=== PATIENT | male | born 1965 | race Caucasian/White ===

== ENCOUNTER → 2018-01-17 11:39 | Outpatient (CLI) | payer OTHER, SELFPAY ==
--- NOTE | 2018-01-17 | DI.MRI.S_ITS ---
PROCEDURE: MR LUMBAR SPINE WO CON INDICATIONS: LOW BACK PAIN RADIATING DOWN LEG TECHNIQUE: Noncontrast sagittal T1 spin echo and T2 fast echo, sagittal STIR, axial T1 and T2 fast spin echo through the lumbar spine. In cases with scoliosis, additional coronal T2 fast spin echo may be performed. COMPARISON: [facility] [place], CR, XR LUMBAR SPINE WITH OLBIQUES PLUS FLEXION EXTENSION, 01/02/2018, 10:41. FINDINGS: Image quality: Excellent. Alignment and Curvature: Grade 2 anterolisthesis of L5 on S1. There is trace retrolisthesis of L4 on L5. Bone Marrow: Degenerative endplate signal abnormalities are present most prominently at L5-S1. Bilateral chronic L5 pars defects. No acute vertebral body compression fractures. Spinal Cord: Conus medullaris terminates at the L1-L2 level. Visualized cord demonstrates normal signal and size. Paraspinous Soft Tissues: No paravertebral masses. Bilateral presumed renal cysts although technically indeterminate L1-L2: Normal appearance. L2-L3: Normal appearance. L3-L4: Broad-based posterior disc bulge and bilateral facet arthropathy. Mild canal narrowing. Minimal partial effacement of the lateral recesses although this appears symmetric. Mild right foraminal narrowing. No definite left foraminal stenosis. L4-L5: Central disc protrusion and bilateral facet arthropathy. There is no definite canal stenosis. Partial effacement of the lateral recesses although this appears symmetric. Severe left and moderate to severe right foraminal narrowing L5-S1: There is epidural lipomatosis. Mild central canal narrowing. Symmetric appearing partial effacement of the lateral recesses. Severe bilateral foraminal stenoses. IMPRESSION: Chronic L5 pars defects with grade 2 anterolisthesis of L5 on S1. Severe bilateral L5-S1 foraminal stenoses. Severe left and moderate to severe right L4-L5 foraminal stenoses. Bilateral subarticular narrowing at L4-L5 and L5-S1 however appears symmetric Dictated by: Aron Peres M.D. on 01/17/2018 at 12:55 Approved by: Aron Peres M.D. on 01/17/2018 at 13:05
== END ==
PROVIDERS: Visit Provider Physical Medicine & Rehabilitation Pain Medicine
DX: M43.17 Spondylolisthesis, lumbosacral region (principal); M48.061 Spinal stenosis, lumbar region without neurogenic claudication; M48.07 Spinal stenosis, lumbosacral region; M54.16 Radiculopathy, lumbar region
CPT/HCPCS: 72148

== ENCOUNTER 2020-01-15 11:45 | Observation (INO) | payer OTHER, SELFPAY ==
[2020-01-15] VITALS (11 sets, daily range): BP systolic 131–178; BP diastolic 84–95; PULSE 66–90; RESP 15–21; TEMP 35.7–36.8; O2SAT 93–97; BMI 34.8
--- NOTE | 2020-01-15 12:04 | DI.RAD.S_ITS ---
PROCEDURE: XR CHEST 1V INDICATIONS: chest pain TECHNIQUE: One view of the chest was acquired. COMPARISON: None. FINDINGS: Surgical changes and devices: Prior spine surgery. Lungs and pleura: Lungs are clear. No pleural effusions or pneumothorax. Mediastinum: Mediastinal contours appear normal. Heart size is normal. Bones and chest wall: No suspicious bony lesions. Overlying soft tissues appear unremarkable. IMPRESSION: A definite source of chest pain is not found. Dictated by: Bruce Baird M.D. on 01/15/2020 at 12:19 Approved by: Bruce Baird M.D. on 01/15/2020 at 12:19
[2020-01-15 12:10] LABS: Add Manual Diff / Slide Review NO; Basophils Absolute Auto 200 /uL (0-100); Basophils Percent Auto 2.2 % (0-2); Eosinophils Absolute Auto 400 /uL (0-450); Eosinophils Percent Auto 3.6 % (2-4); Hematocrit 46.3 % (41-53); Hemoglobin 16.2 g/dL (13.5-17.5); Lymphocytes Absolute Auto 2500 /uL (1100-4500); Lymphocytes Percent Auto 25.3 % (25-40); Mean Corpuscular Hemoglobin 31.2 PG (26-34); Mean Corpuscular Volume 89.1 fL (80-100); Monocytes Absolute Auto 500 /uL (0-900); Monocytes Percent Auto 5.5 % (3-14); Neutrophils Absolute Auto 6300 /uL (1500-7000); Neutrophils Percent Auto 63.4 % (50-75); Platelet Count 235 X10^3/uL (150-400); Red Blood Cell Count 5.19 X10^6/uL (4.5-5.9); Red Cell Distribution Width 13.4 % (11.6-14.8); White Blood Cell Count 9.9 X10^3/uL (4.5-11.0)
[2020-01-15 12:14] LABS: Prothrombin Time 11.1 SECONDS (10.1-12.7)
[2020-01-15 12:17] LABS: PTT Partial Thromboplastin Tim 32 SECONDS (26.4-36.2)
[2020-01-15 12:19] LABS: Alanine Aminotransferase 29 IU/L (<50); Albumin 4.1 g/dL (3.5-5.0); Albumin Globulin Ratio 1.4 (1.0-2.8); Alkaline Phosphatase 125 U/L (38-126); Aspartate Aminotransferase 26 IU/L (17-59); BUN Creatinine Ratio 14.3 (6-22); Bilirubin Total 0.6 mg/dL (0.2-1.3); Blood Urea Nitrogen 8 mg/dL (9-20); Calcium 9.1 mg/dL (8.4-10.2); Carbon Dioxide 26 mmol/L (22-32); Chloride 103 mmol/L (98-107); Creatine Kinase 116 U/L (55-170); Estimated Glomerular Filt Rate > 60.0 mL/min (>60); Glucose 195 mg/dL (70-100); HEMOLYSIS 22 (0-50); Lipase 215 U/L (23-300); Potassium 4.1 mmol/L (3.4-5.1); Sodium 133 mmol/L (137-145); Total Protein 7.1 g/dL (6.3-8.2)
--- NOTE | 2020-01-15 12:25 | ED_ITS ---
HPI - Chest Pain <LATONYA Haney - Last Filed: 01/15/20 18:09> General Chief Complaint: Chest Pain Stated Complaint: CHEST PAIN Time Seen by Provider: 01/15/20 12:05 Source: patient Mode of arrival: Ambulatory History of Present Illness HPI narrative: 54yo male current smoker with a history of HTN, HLD, presents emergency department for substernal intermittent chest pain for the past 3 months. Patient states a occurred anywhere from 0 to 3 times a day. He notices it often in the middle night, in the morning after drinking coffee, or when he standing around camper after hunting. He has been taking Tums which usually improves the pain. Pain lasts anywhere from 1-4 hours. He describes it as a dull aching/tightness 07/31. Patient states he started taking pantoprazole approximately 1 month ago but does not take it daily, only takes it when he feels like he has heartburn. He states that this has not worked very well. Patient denies any personal cardiac history. 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 Patient denies any other symptoms such as shortness of breath, wheezing, dizziness, nausea, vomiting, diarrhea, fevers, rhinitis, sore throat, or worsening cough. He states he has a chronic cough from smoking. Patient denies chest pain at this time. Related Data Home Medications Medication Instructions Recorded Confirmed telmisartan [Micardis] 40 mg PO QDAY #0 01/26/16 01/15/20 albuterol sulfate [Ventolin HFA] 1 puff INH PRN PRN #0 03/17/16 01/15/20 Previous Rx's Medication Instructions Recorded oxycodone 5 - 10 mg PO Q3HP PRN #40 03/31/16 Allergies Allergy/AdvReac Type Severity Reaction Status Date / Time No Known Allergies Allergy Verified 01/15/20 12:26 Review of Systems <LATONYA Haney - Last Filed: 01/15/20 18:09> Review of Systems Narrative: REVIEW OF SYSTEMS: GENERAL: Denies fever or chills. HENT: No head trauma. CARDIOVASCULAR: Reports chest pain, see HPI. RESPIRATORY: No shortness of breath. GASTROINTESTINAL: No nausea, vomiting, diarrhea, or constipation. MUSCULOSKELETAL: No injury. INTEGUMENTARY: No rash. NEURO: No numbness or tingling. PSYCH: No behavior or mood changes. Patient History <LATONYA Haney - Last Filed: 01/15/20 18:09> Medical History HTN (hypertension) Surgical History (Updated 01/15/20 @ 18:25 by Felisa Finley MD) H/O cervical spine surgery Family History (Updated 01/15/20 @ 18:23 by Felisa Finley MD) Grandfather Myocardial infarction Cardiac disease Brother Myocardial infarction Social History household members: significant other Smoking Status: Current every day smoker Smoking Status: Current every day smoker Substance Use Type: marijuana Exam <LATONYA Haney - Last Filed: 01/15/20 18:09> Initial Vital Signs Initial Vital Signs: Vital Signs Temperature 98.3 F 01/15/20 11:45 Pulse Rate 80 01/15/20 11:45 Respiratory Rate 16 01/15/20 11:45 Blood Pressure 178/95 H 01/15/20 11:45 Pulse Oximetry 97 01/15/20 11:45 PHYSICAL EXAMINATION: GENERAL: Well groomed, alert, and cooperative. Answers questions promptly and appropriately. Vital signs noted. HENT: Normocephalic, atraumatic. EYES: Conjunctiva pink, sclera white, no periorbital swelling. CHEST: Normal to inspection and without deformities. CARDIOVASCULAR: S1 and S2 sounds normal. Regular rate and rhythm, no murmurs, clicks, or bruits. No pedal edema. RESPIRATORY: Normal respiratory rate, trachea midline, airway patent. No stridor, nasal flaring or accessory muscle use. Lungs are clear in all jones without wheeze, rhonchi, or crackles. Occasional dry cough heard throughout examination. GASTROINTESTINAL: Bowel sounds normoactive. Abdomen is soft and non-tender. No organomegaly. MUSCULOSKELETAL: Normal gait and coordination. Equal tone and mass bilaterally. EXTREMITIES: CMS intact. Moves all extremities. SKIN: Warm, dry, soft, appropriate color for ethnicity. No lesions, rashes, or wounds. NEURO: Alert and Oriented X 3. Good coordination. No ataxia, or sensory deficits, or cognitive issues. PSYCH: Appropriate affect and mood. <Adelfo Herzog DO - Last Filed: 01/15/20 18:36> Initial Vital Signs Initial Vital Signs: Vital Signs Temperature 98.3 F 01/15/20 11:45 Pulse Rate 80 01/15/20 11:45 Respiratory Rate 16 01/15/20 11:45 Blood Pressure 178/95 H 01/15/20 11:45 Pulse Oximetry 97 01/15/20 11:45 Scores <LATONYA Haney - Last Filed: 01/15/20 18:09> HEART Score Heart Score history: Moderately Suspicious Heart Score EKG: Normal Heart Score Age: 45-64 years old Heart Score risk factors: > 3 risk factors or hx of atherosclerotic disease Heart Score troponin: < or = to normal limit Heart Score Total: 4 Course <LATONYA Haney - Last Filed: 01/15/20 18:09> Course Course Narrative: 1300: I spoke with Dr. Finley, discussed that patient's heart score is 4, discussed family history and risk factors as well as laboratory work and imaging results. She accepts for admission. 1306: Patient updated on plan of care, consents to admission. Declines need for nicotine patch at this time. 1340: Patient verbalized request to leave, however, discussed with patient multiple times and in depth that cardiac issues can present themselves when the heart is active and we discussed the need for stress test and that he is moderate risk. Discussed that if he wanted to be discharged, he should sign an Against Medical Advice form. Patient states, I will stay. Orders Ordered: ED Orders 01/15/20 11:58 EKG-12 Lead Stat 01/15/20 12:00 Complete Blood Count AUTO DIFF Stat Comprehensive Metabolic Panel Stat Lipase Stat Partial Thromboplastin Time Stat Prothrombin Time INR Stat Troponin & CK Cardiac Panel Stat 01/15/20 12:04 XR chest 1V Stat Acetaminophen (Acetaminophen 325 Mg Tablet) 650 mg PO Q6HR PRN PRN Reason: Fever/Mild Pain (1-3) Al Hydrox/Mg Hydrox/Simethicone (Mag Hydrox/Alum/Simeth 30 Ml Udc) 30 ml PO Q6HR PRN PRN Reason: Dyspepsia Albuterol (Albuterol Hfa 200 Puff/18 Gm Inh (Covid Pos/Vent Pts)) 2 puff INH RTQ4HR PRN PRN Reason: Shortness Of Breath Aspirin (Aspirin Ec 81 Mg Tablet) 81 mg PO DAILY [facility] Enoxaparin Sodium (Enoxaparin 40 Mg/0.4 Ml Syringe) 40 mg SUBCUT DAILY [facility] Magnesium Hydroxide (Magnesium Hydroxide 30 Ml Udc) 30 ml PO DAILY PRN PRN Reason: Constipation Morphine Sulfate (Morphine 2 Mg/Ml Inj) 2 mg IV Q4HR PRN PRN Reason: Pain, Moderate (4-6) Morphine Sulfate (Morphine 2 Mg/Ml Inj) 2 mg IV Q5MIN PRN PRN Reason: Chest Pain Naloxone HCl (Naloxone 0.4 Mg/Ml Vial) 0.2 mg IV Q2MIN PRN PRN Reason: Opiate Reversal Nitroglycerin (Nitroglycerin 0.4 Mg Sl Tab) 0.4 mg SL [id number] PRN PRN Reason: Chest Pain Ondansetron HCl (Ondansetron 4 Mg/2 Ml Inj) 4 mg IV Q8HR PRN PRN Reason: Nausea And Vomiting Pantoprazole Sodium (Pantoprazole 40 Mg Tablet) 40 mg PO 0700 [facility] Telmisartan (Telmisartan 40 Mg Tablet) 40 mg PO DAILY [facility] Discontinued Medications Pantoprazole Sodium (Pantoprazole 40 Mg Vial) 40 mg IV NOW ONE Stop: 01/15/20 12:23 Last Admin: 01/15/20 12:27 Dose: 40 mg Documented by: ATUL Consultations Consultation #1: Patient staffed with Dr. Herzog discussed test, test results, plan of care. Vital Signs Vital signs: Vital Signs - 8 hr 01/15/20 11:45 01/15/20 12:00 01/15/20 12:30 Temperature 98.3 F Pulse Rate 80 79 73 Respiratory Rate 16 17 18 Blood Pressure 178/95 H Pulse Oximetry 97 96 95 01/15/20 12:35 01/15/20 13:00 Temperature Pulse Rate 74 66 Respiratory Rate 21 15 Blood Pressure 131/89 Pulse Oximetry 94 94 <Adelfo Herzog, DO - Last Filed: 01/15/20 18:36> Orders Ordered: ED Orders 01/15/20 11:58 EKG-12 Lead Stat 01/15/20 12:00 Complete Blood Count AUTO DIFF Stat Comprehensive Metabolic Panel Stat Lipase Stat Partial Thromboplastin Time Stat Prothrombin Time INR Stat Troponin & CK Cardiac Panel Stat 01/15/20 12:04 XR chest 1V Stat Acetaminophen (Acetaminophen 325 Mg Tablet) 650 mg PO Q6HR PRN PRN Reason: Fever/Mild Pain (1-3) Al Hydrox/Mg Hydrox/Simethicone (Mag Hydrox/Alum/Simeth 30 Ml Udc) 30 ml PO Q6HR PRN PRN Reason: Dyspepsia Albuterol (Albuterol Hfa 200 Puff/18 Gm Inh (Covid Pos/Vent Pts)) 2 puff INH RTQ4HR PRN PRN Reason: Shortness Of Breath Aspirin (Aspirin Ec 81 Mg Tablet) 81 mg PO DAILY [facility] Enoxaparin Sodium (Enoxaparin 40 Mg/0.4 Ml Syringe) 40 mg SUBCUT DAILY [facility] Magnesium Hydroxide (Magnesium Hydroxide 30 Ml Udc) 30 ml PO DAILY PRN PRN Reason: Constipation Morphine Sulfate (Morphine 2 Mg/Ml Inj) 2 mg IV Q4HR PRN PRN Reason: Pain, Moderate (4-6) Morphine Sulfate (Morphine 2 Mg/Ml Inj) 2 mg IV Q5MIN PRN PRN Reason: Chest Pain Naloxone HCl (Naloxone 0.4 Mg/Ml Vial) 0.2 mg IV Q2MIN PRN PRN Reason: Opiate Reversal Nitroglycerin (Nitroglycerin 0.4 Mg Sl Tab) 0.4 mg SL [id number] PRN PRN Reason: Chest Pain Ondansetron HCl (Ondansetron 4 Mg/2 Ml Inj) 4 mg IV Q8HR PRN PRN Reason: Nausea And Vomiting Pantoprazole Sodium (Pantoprazole 40 Mg Tablet) 40 mg PO 0700 [facility] Telmisartan (Telmisartan 40 Mg Tablet) 40 mg PO DAILY [facility] Discontinued Medications Pantoprazole Sodium (Pantoprazole 40 Mg Vial) 40 mg IV NOW ONE Stop: 01/15/20 12:23 Last Admin: 01/15/20 12:27 Dose: 40 mg Documented by: ATUL Vital Signs Vital signs: Vital Signs - 8 hr 01/15/20 11:45 01/15/20 12:00 01/15/20 12:30 Temperature 98.3 F Pulse Rate 80 79 73 Respiratory Rate 16 17 18 Blood Pressure 178/95 H Pulse Oximetry 97 96 95 01/15/20 12:35 01/15/20 13:00 Temperature Pulse Rate 74 66 Respiratory Rate 21 15 Blood Pressure 131/89 Pulse Oximetry 94 94 MDM - Chest Pain <Aniya LATONYA Jordan - Last Filed: 01/15/20 18:09> Medical Records Data Attestation: I reviewed the patient's medical records. Lab Data Attestation: I reviewed the patient's lab results. Result diagrams: 01/15/20 12:00 01/15/20 12:00 Labs: Lab Results 01/15/20 01/15/20 01/15/20 Range/Units 12:00 12:00 12:00 WBC 9.9 (4.5-11.0) X10^3/uL RBC 5.19 (4.5-5.9) X10^6/uL Hgb 16.2 (13.5-17.5) g/dL Hct 46.3 (41-53) % MCV 89.1 (80-100) fL MCH 31.2 (26-34) PG MCHC 35.0 (30-36) % RDW 13.4 (11.6-14.8) % Plt Count 235 (150-400) X10^3/uL Neut % (Auto) 63.4 (50-75) % Lymph % (Auto) 25.3 (25-40) % [place] % (Auto) 5.5 (3-14) % Eos % (Auto) 3.6 (2-4) % Baso % (Auto) 2.2 H (0-2) % Neut # (Auto) 6300 (2571-6243) /uL Lymph # (Auto) 2500 (2096-3351) /uL [place] # (Auto) 500 (0-900) /uL Eos # (Auto) 400 (0-450) /uL Baso # (Auto) 200 H (0-100) /uL PT 11.1 (10.1-12.7) SECONDS INR 1.0 (0.9-1.3) APTT 32 (26.4-36.2) SECONDS Sodium 133 L (137-145) mmol/L Potassium 4.1 (3.4-5.1) mmol/L Chloride 103 (98-107) mmol/L Carbon Dioxide 26 (22-32) mmol/L BUN 8 L (9-20) mg/dL Creatinine 0.56 L (0.66-1.25) mg/dL Estimated GFR > 60.0 (>60) mL/min BUN/Creatinine Ratio 14.3 (6-22) Glucose 195 H (70-100) mg/dL Calcium 9.1 (8.4-10.2) mg/dL Total Bilirubin 0.6 (0.2-1.3) mg/dL AST 26 (17-59) IU/L ALT 29 (<50) IU/L Alkaline Phosphatase 125 (38-126) U/L Total Creatine Kinase 116 (55-170) U/L CK-MB (CK-2) 0.52 (<2.37) ng/mL CK-MB (CK-2) Rel Index 0.4 L (1.5-5.0) % Troponin I < 0.012 (0.01-0.034) ng/mL Total Protein 7.1 (6.3-8.2) g/dL Albumin 4.1 (3.5-5.0) g/dL Globulin 3.0 (1.7-4.1) g/dL Albumin/Globulin Ratio 1.4 (1.0-2.8) Lipase 215 (23-300) U/L Imaging Data Chest x-ray: Radiologist's Impression: [address] [id number] ReportSigned Patient: Amrit Jo RMR#: [id number]: [id number]:[id number]/Sex: 54 / MDate of Service: 01/15/20Loc: EDAccession Number: [id number] Procedure: XR chest 1V Ordering Provider: Adelfo Herzog D.O. PROCEDURE: XR CHEST 1V INDICATIONS: chest pain TECHNIQUE: One view of the chest was acquired. COMPARISON: None. FINDINGS: Surgical changes and devices: Prior spine surgery. Lungs and pleura: Lungs are clear. No pleural effusions or pneumothorax. Mediastinum: Mediastinal contours appear normal. Heart size is normal. Bones and chest wall: No suspicious bony lesions. Overlying soft tissues appear unremarkable. IMPRESSION: A definite source of chest pain is not found. Dictated by: Bruce Baird M.D. on 01/15/2020 at 12:19 Approved by: Bruce Baird M.D. on 01/15/2020 at 12:19 ECG Data Interpretation: 1158: Sinus rhythm, rate 70, [place] interval 180, QTC 412. No ST elevation or ST depression. No T-wave inversion. No ectopy. EKG also viewed by Dr. Herzog per protocol. MDM Narrative Medical decision making narrative: 54-year-old male with HTN, HLD, and current smoker, with family history of a half brother that from an [place] in his 40- 50s, presents to the ED for intermittent chest pain over the past 3 months. While patient's initial workup in the emergency department is generally negative: No acute changes on EKG, troponin negative, laboratory work non-remarkable, and chest x-ray are non-remarkable. The patient's heart score is a 4 which is a moderate risk, given his history, hospitalist was paged for consultation. After discussion of history and test results, patient was accepted for admission to [facility] by Dr. Finley for further workup and evaluation of h is intermittent chest pain. Patient remained chest pain-free throughout the emergency department. Differential also includes acid-reflux as he states occasionally Tums can improve his symptoms however, Prilosec has not improved symptoms. There is some question as if he is taking appropriately. Less likely PE given lack of shortness of breath, hypoxia, dyspnea, or history of clotting. Less likely acute infection given lack of tachycardia, cough, rhinitis, changes on chest x-ray, for complaints of fever or abdominal pain. Patient initially question admission, after much explanation, he agreed to inpatient admission. <Adelfo Herzog, DO - Last Filed: 01/15/20 18:36> Lab Data Labs: Lab Results 01/15/20 01/15/20 01/15/20 Range/Units 12:00 12:00 12:00 WBC 9.9 (4.5-11.0) X10^3/uL RBC 5.19 (4.5-5.9) X10^6/uL Hgb 16.2 (13.5-17.5) g/dL Hct 46.3 (41-53) % MCV 89.1 (80-100) fL MCH 31.2 (26-34) PG MCHC 35.0 (30-36) % RDW 13.4 (11.6-14.8) % Plt Count 235 (150-400) X10^3/uL Neut % (Auto) 63.4 (50-75) % Lymph % (Auto) 25.3 (25-40) % [place] % (Auto) 5.5 (3-14) % Eos % (Auto) 3.6 (2-4) % Baso % (Auto) 2.2 H (0-2) % Neut # (Auto) 6300 (4814-7223) /uL Lymph # (Auto) 2500 (2713-3555) /uL [place] # (Auto) 500 (0-900) /uL Eos # (Auto) 400 (0-450) /uL Baso # (Auto) 200 H (0-100) /uL PT 11.1 (10.1-12.7) SECONDS INR 1.0 (0.9-1.3) APTT 32 (26.4-36.2) SECONDS Sodium 133 L (137-145) mmol/L Potassium 4.1 (3.4-5.1) mmol/L Chloride 103 (98-107) mmol/L Carbon Dioxide 26 (22-32) mmol/L BUN 8 L (9-20) mg/dL Creatinine 0.56 L (0.66-1.25) mg/dL Estimated GFR > 60.0 (>60) mL/min BUN/Creatinine Ratio 14.3 (6-22) Glucose 195 H (70-100) mg/dL Calcium 9.1 (8.4-10.2) mg/dL Total Bilirubin 0.6 (0.2-1.3) mg/dL AST 26 (17-59) IU/L ALT 29 (<50) IU/L Alkaline Phosphatase 125 (38-126) U/L Total Creatine Kinase 116 (55-170) U/L CK-MB (CK-2) 0.52 (<2.37) ng/mL CK-MB (CK-2) Rel Index 0.4 L (1.5-5.0) % Troponin I < 0.012 (0.01-0.034) ng/mL Total Protein 7.1 (6.3-8.2) g/dL Albumin 4.1 (3.5-5.0) g/dL Globulin 3.0 (1.7-4.1) g/dL Albumin/Globulin Ratio 1.4 (1.0-2.8) Lipase 215 (23-300) U/L Discharge Plan Departure Patient Disposition: Admitted as Observation Clinical Impression: Chest pain Qualifiers: Chest pain type: unspecified Qualified Code(s): R07.9 - Chest pain, unspecified Admit Date/Time: 01/15/20 13:00 Admit Provider: Felisa Finley <Adelfo Herzog DO - Last Filed: 01/15/20 18:36> Cosign ED Attending Cosignature Attestation: Dr Herzog Co-Sign Statement: I was available for consultation during this patient's emergency department visit. This chart is signed by myself for administrative purposes only. I did not have direct contact with this patient during this visit. They were seen independently by the APC.
[2020-01-15] MEDS: PANTOPRAZOLE 40 MG VIAL IV (12:27)
[2020-01-15 12:30] LABS: Troponin I < 0.012 ng/mL (0.01-0.034)
[2020-01-15 12:34] LABS: CKMB % Relative Index 0.4 % (1.5-5.0); Creatine Kinase MB 0.52 ng/mL (<2.37)
--- NOTE | 2020-01-15 18:02 | P.HP_ITS ---
History of Present Illness History of Present Illness Chief complaint: CHEST PAIN Narrative: The patient is a 54-year-old male with a history of hypertension, bronchitis, smoker, with positive family history who presents for evaluation of chest pain. Patient states his symptoms began about 3 months ago. He initially thought it was heartburn as he described substernal pressure. He initially took omeprazole which seemed to help. Over the last few weeks he has had daily intermittent substernal chest pain. The pain at times radiates to the left side of his neck. It has been both present with and without activity. He reports that it has been a maximum of 4/10 in intensity. He has had no shortness of br eath nausea or diaphoresis with the. Despite taking omeprazole he has continued to have persistent pain and presented to the emergency room for evaluation. The patient has a half brother who unexpectedly of a massive coronary in his late 40s. He has no history of diabetes or hyperlipidemia. He has a history of hypertension. The patient was seen and evaluated in the emergency department. His EKG reveals sinus rhythm. His initial cardiac enzymes were negative. Patient is admitted to the hospital for further evaluation of chest pain. Patient History Medical History HTN (hypertension) Surgical History (Updated 01/15/20 @ 18:25 by Felisa Finley MD) H/O cervical spine surgery Family & Social History Family History (Updated 01/15/20 @ 18:23 by Felisa Finley MD) Grandfather Myocardial infarction Cardiac disease Brother Myocardial infarction Social History: household members significant other Prior Living Arrangements House Safety & Behavioral: Feels Safe in Current Yes Environment Been Physically Hurt or No Threatened By a Person Tobacco & Substance use: Smoking Status Current every day smoker Substance Use Type marijuana Meds Home Medications and Allergies Home Medications Medication Instructions Recorded Confirmed Type telmisartan [Micardis] 40 mg PO QDAY #0 01/26/16 01/15/20 History albuterol sulfate [Ventolin HFA] 1 puff INH PRN PRN #0 03/17/16 01/15/20 History oxycodone 5 - 10 mg PO Q3HP PRN #40 03/31/16 01/15/20 Rx Allergies Allergy/AdvReac Type Severity Reaction Status Date / Time No Known Allergies Allergy Verified 01/15/20 12:26 Review of Systems Review of Systems ROS: Yes All systems reviewed with the patient and are negative except as otherwise documented Exam Vital Signs (past 8 hours): - 01/15/20 11:45 01/15/20 12:00 01/15/20 12:30 Temperature 98.3 F Pulse Rate 80 79 73 Respiratory Rate 16 17 18 Blood Pressure 178/95 H Pulse Oximetry 97 96 95 01/15/20 12:35 01/15/20 13:00 01/15/20 13:01 Temperature Pulse Rate 74 66 68 Respiratory Rate 21 15 20 Blood Pressure 131/89 151/86 H Pulse Oximetry 94 94 93 01/15/20 13:34 01/15/20 14:00 01/15/20 14:31 Temperature 96.3 F L Pulse Rate 71 72 77 Respiratory Rate 20 17 18 Blood Pressure 151/90 H Pulse Oximetry 94 96 97 01/15/20 15:30 Temperature 97.4 F L Pulse Rate 90 Respiratory Rate 15 Blood Pressure 149/86 H Pulse Oximetry 95 Oxygen Delivery Method Room Air Oxygen Flow Rate 0 Narrative Exam Narrative: Pleasant gentleman resting comfortably in no obvious distress HEENT: Normocephalic atraumatic, extraocular muscles are intact, oropharynx is clear, neck is supple, no adenopathy or thyromegaly Lungs: Clear to auscultation, no rhonchi crackles or wheezes Cardiac exam: Regular rate and rhythm normal S1-S2 Abdomen obese soft nontender nondistended without hepatosplenomegaly Extremities: No edema Neuro exam: Nonfocal Skin exam: No lesion Psychiatric exam patient awake alert and appropriate Objective Labs Result Diagrams: 01/15/20 12:00 01/15/20 12:00 Labs: Laboratory Results - last 24 hr 01/15/20 01/15/20 01/15/20 12:00 12:00 12:00 WBC 9.9 RBC 5.19 Hgb 16.2 Hct 46.3 MCV 89.1 MCH 31.2 MCHC 35.0 RDW 13.4 Plt Count 235 Neut % (Auto) 63.4 Lymph % (Auto) 25.3 [place] % (Auto) 5.5 Eos % (Auto) 3.6 Baso % (Auto) 2.2 H Neut # (Auto) 6300 Lymph # (Auto) 2500 [place] # (Auto) 500 Eos # (Auto) 400 Baso # (Auto) 200 H PT 11.1 INR 1.0 APTT 32 Sodium 133 L Potassium 4.1 Chloride 103 Carbon Dioxide 26 BUN 8 L Creatinine 0.56 L Estimated GFR > 60.0 BUN/Creatinine Ratio 14.3 Glucose 195 H Calcium 9.1 Total Bilirubin 0.6 AST 26 ALT 29 Alkaline Phosphatase 125 Total Creatine Kinase 116 CK-MB (CK-2) 0.52 CK-MB (CK-2) Rel Index 0.4 L Troponin I < 0.012 Total Protein 7.1 Albumin 4.1 Globulin 3.0 Albumin/Globulin Ratio 1.4 Lipase 215 Assessment & Plan Assessment & Plan narrative: 54-year-old male with a history of hypertension, smoker, positive family history presents to the hospital for evaluation of chest pain -initial cardiac enzymes negative -EKG reveals no ST-T changes -history suggestive of reflux -given multiple risk factors must rule out cardiac disease -will obtain fasting lipid profile, start an aspirin, order stress test tomorrow 2. Hypertension -continue Micardis 3. GERD -history is suggestive for reflux -will start PPI 4. Nicotine dependence -patient counseled to discontinue smoking -patient offered nicotine patch which he refuses Patient's surrogate decision makers his is at the bedside Patient is a full code and will note that his record accordingly Will start Lovenox for DVT prophylax Patient will be placed in observation anticipate discharge tomorrow
--- NOTE | 2020-01-15 18:24 | PC.NURSE ---
Evening note: Amrit is awake, Ox3 & situation. Reports no chest pain now, but told me he felt pain just a while ago and pointed to the middle of his chest, at substernal level. Rated that pain 1/10 and said it went away. Dr Finley in room to see patient, new orders given. Telemetry continues, rhythm is normal sinus. BP hypertensive. Frowned when I told him the Dr ordered a heart healthy diet, his said he is a big salt attila. Patient aware not to drink any caffeinated beverages, decaf tea or coffee & no chocolate. Aware he will have cardiac stress test tomorrow. He is friendly to staff, visiting at bedside.
[2020-01-15 20:24] LABS: Hemoglobin A1C% w Est Avg Glu 9.3 % (4.0-6.0)
[2020-01-15 20:28] LABS: Cholesterol 181 mg/dL (140-199); HDL Cholesterol 41 mg/dL (40-60); LDL Cholesterol Calculated 86 mg/dL (<100); Triglycerides 270 mg/dL (35-150)
[2020-01-15 20:39] LABS: Troponin I < 0.012 ng/mL (0.01-0.034)
[2020-01-16 00:39] VITALS: BP 130/81; PULSE 85; RESP 20; TEMP 36.5; O2SAT 95
--- NOTE | 2020-01-16 01:17 | PC.NURSE ---
2300 Received safe hand-off report. The patient is resting in bed. He is alert and oriented x4. Denies chest pain. The bed alarm is off; the patient is independent and marked as a low fall risk. No s/sx of distress.
[2020-01-16 02:27] LABS: Troponin I < 0.012 ng/mL (0.01-0.034)
[2020-01-16 04:43] LABS: Add Manual Diff / Slide Review NO; Basophils Absolute Auto 100 /uL (0-100); Eosinophils Absolute Auto 500 /uL (0-450); Eosinophils Percent Auto 4.1 % (2-4); Lymphocytes Absolute Auto 2900 /uL (1100-4500); Lymphocytes Percent Auto 25.7 % (25-40); Mean Corpuscular HGB Conc 33.3 % (30-36); Mean Corpuscular Hemoglobin 30.1 PG (26-34); Mean Corpuscular Volume 90.4 fL (80-100); Monocytes Absolute Auto 700 /uL (0-900); Monocytes Percent Auto 6.1 % (3-14); Neutrophils Absolute Auto 7200 /uL (1500-7000); Neutrophils Percent Auto 63.1 % (50-75); Platelet Count 242 X10^3/uL (150-400); Red Blood Cell Count 4.98 X10^6/uL (4.5-5.9); Red Cell Distribution Width 13.5 % (11.6-14.8); White Blood Cell Count 11.3 X10^3/uL (4.5-11.0)
[2020-01-16 04:46] LABS: BUN Creatinine Ratio 11.8 (6-22); Blood Urea Nitrogen 9 mg/dL (9-20); Calcium 9.1 mg/dL (8.4-10.2); Carbon Dioxide 30 mmol/L (22-32); Chloride 101 mmol/L (98-107); Estimated Glomerular Filt Rate > 60.0 mL/min (>60); Glucose 168 mg/dL (70-100); HEMOLYSIS 25 (0-50); Potassium 4.1 mmol/L (3.4-5.1); Sodium 134 mmol/L (137-145)
[2020-01-16 05:38] VITALS: BP 146/85; PULSE 70; RESP 20; TEMP 36; O2SAT 96
[2020-01-16] MEDS: PANTOPRAZOLE 40 MG TABLET PO (06:02)
[2020-01-16 08:25] VITALS: BP 129/83; PULSE 74; RESP 16; TEMP 36.3; O2SAT 94
[2020-01-16 08:57] VITALS: O2SAT 95
[2020-01-16] MEDS: TELMISARTAN 40 MG TABLET PO (09:45)
[2020-01-16] MEDS: ENOXAPARIN 40 MG/0.4 ML SYRINGE SUBCUT (09:45)
[2020-01-16] MEDS: ASPIRIN EC 81 MG TABLET PO (09:45)
--- NOTE | 2020-01-16 10:19 | CM.DANOTE ---
DCP: Case received, EMR reviewed and met with patient. Introduced self and role. Was able to obtain information from patient regarding his baseline activity level prior to hospitalization. DCP assessment completed with information currently available. Patient is a 54 year old male who admitted yesterday afternoon to the care of the hospitalist tim. PCP: Dr. Lopez at [facility]. Patient came to the hospital via private vehicle secondary to having chest pain. According to notes, patient had been having intermittent chest pain for the last 3 months. Patient had wanted to leave the hospital, but was encouraged to stay, since he is having a stress test today. Patient is also a newly diagnosed diabetic. He has declined nutritional teaching. Met with patient in his room. He is eager to go home today. He is to be having his stress test later this morning. Patient is independent, resides in [place] with his spouse, Nichol. Asked him if he had a provider. Patient indicated that [facility], and has a new provider. He has already seen a nutrition professor at the clinic, as well, regarding diabetes education. P: DCP to continue to follow. Plan is for home, depending upon stress test. Keysha Muñoz RN/Admittance Attendant
[2020-01-16 11:46] VITALS: BP 136/79; PULSE 72; RESP 16; TEMP 36.4; O2SAT 95
[2020-01-16 12:38] LABS: COVID19 -Nasal RAPID Negative (Negative)
[2020-01-16 15:42] VITALS: BP 124/69; PULSE 87; RESP 18; TEMP 36.4; O2SAT 95
[2020-01-16] MEDS: METFORMIN HCL 500 MG TABLET PO (17:05)
[2020-01-16] MEDS: HEPARIN DRIP 25,000 UNIT/500 ML IV.SOLN 26.454 UNIT IV (18:01)
--- NOTE | 2020-01-16 18:04 | P.DS_ITS ---
History of Present Illness History of Present Illness Chief complaint: CHEST PAIN Narrative: The patient is a 54-year-old male with a history of hypertension, bronchitis, smoker, with positive family history who presents for evaluation of chest pain. Patient states his symptoms began about 3 months ago. He initially thought it was heartburn as he described substernal pressure. He initially took omeprazole which seemed to help. Over the last few weeks he has had daily intermittent substernal chest pain. The pain at times radiates to the left side of his neck. It has been both present with and without activity. He reports that it has been a maximum of 4/10 in intensity. He has had no shortness of br eath nausea or diaphoresis with the. Despite taking omeprazole he has continued to have persistent pain and presented to the emergency room for evaluation. The patient has a half brother who unexpectedly of a massive coronary in his late 40s. He has no history of diabetes or hyperlipidemia. He has a history of hypertension. The patient was seen and evaluated in the emergency department. His EKG reveals sinus rhythm. His initial cardiac enzymes were negative. Patient is admitted to the hospital for further evaluation of chest pain. Discharge Providers Provider Date of admission: 01/15/20 13:00 Discharge Date: 01/16/20 Discharge provider: Felisa Finely MD Summary Hospital Course Discharge Diagnosis: 1. Unstable angina 2. Nuclear medicine myocardial perfusion scan demonstrates mid to distal anterior apical reversible defect 3. Type 2 diabetes, new diagnosis 4. Hypertension 5. Chronic Bronchitis Hospital Course: Patient was admitted to the hospital for recurrent chest pain. Pain had been occurring off and on for the past 3 months. He had attempted to take antacids for relief which was unsuccessful. Patient had pain from 1-4 on a scale of 10. He was admitted to the hospital where cardiac enzymes were obtained which were negative. Twelve lead EKG showed no acute ST T wave abnormalities. The patient underwent nuclear medicine Lexiscan which showed mid to distal anterior apical defect. The case was discussed with Dr. Cole who recommended the patient be transferred to [facility] for immediate cardiac catheterization. The case was discussed with Dr. Ruib, he recommended continuation of aspirin, IV heparin, and to hold Plavix at this time. Patient will be started on a statin. He had previously been started on metformin for his new diagnosis of diabetes. The metformin will be held in anticipation for cardiac catheterization. The patient is currently pain-free. He is deemed appropriate for transfer to [facility] for further workup. Status at Discharge Cognitive/behavioral status at discharge: oriented Functional status at discharge: independent ambulation Overall status at discharge: patient is not back to baseline Time Spent with Patient Time spent: Less than 30 minutes Exam Vital Signs (past 8 hours): - 01/16/20 11:46 01/16/20 15:42 Temperature 97.6 F 97.5 F L Pulse Rate 72 87 Respiratory Rate 16 18 Blood Pressure 136/79 124/69 Pulse Oximetry 95 95 Oxygen Delivery Method Room Air Oxygen Flow Rate 0 Narrative Exam Narrative: Pleasant gentleman resting comfortably in no obvious distress Lungs: Clear to auscultation Cardiac exam: Regular rate and rhythm normal S1-S2 Abdomen: Soft nontender nondistended Extremities: No edema Objective Labs Result Diagrams: 01/16/20 02:00 01/16/20 02:00 Labs: Laboratory Results - last 24 hr 01/15/20 01/15/20 01/15/20 20:00 20:00 20:00 WBC RBC Hgb Hct MCV MCH MCHC RDW Plt Count Neut % (Auto) Lymph % (Auto) [place] % (Auto) Eos % (Auto) Baso % (Auto) Neut # (Auto) Lymph # (Auto) [place] # (Auto) Eos # (Auto) Baso # (Auto) Sodium Potassium Chloride Carbon Dioxide BUN Creatinine Estimated GFR BUN/Creatinine Ratio Glucose Hemoglobin A1c 9.3 H Calcium Troponin I < 0.012 Triglycerides 270 H Cholesterol 181 LDL Cholesterol, Calc 86 HDL Cholesterol 41 COVID-19 PCR 01/16/20 01/16/20 01/16/20 02:00 02:00 02:00 WBC 11.3 H RBC 4.98 Hgb 15.0 Hct 45.0 MCV 90.4 MCH 30.1 MCHC 33.3 RDW 13.5 Plt Count 242 Neut % (Auto) 63.1 Lymph % (Auto) 25.7 [place] % (Auto) 6.1 Eos % (Auto) 4.1 H Baso % (Auto) 1.0 Neut # (Auto) 7200 H Lymph # (Auto) 2900 [place] # (Auto) 700 Eos # (Auto) 500 H Baso # (Auto) 100 Sodium 134 L Potassium 4.1 Chloride 101 Carbon Dioxide 30 BUN 9 Creatinine 0.76 Estimated GFR > 60.0 BUN/Creatinine Ratio 11.8 Glucose 168 H Hemoglobin A1c Calcium 9.1 Troponin I < 0.012 Cancelled Triglycerides Cholesterol LDL Cholesterol, Calc HDL Cholesterol COVID-19 PCR 01/16/20 11:25 WBC RBC Hgb Hct MCV MCH MCHC RDW Plt Count Neut % (Auto) Lymph % (Auto) [place] % (Auto) Eos % (Auto) Baso % (Auto) Neut # (Auto) Lymph # (Auto) [place] # (Auto) Eos # (Auto) Baso # (Auto) Sodium Potassium Chloride Carbon Dioxide BUN Creatinine Estimated GFR BUN/Creatinine Ratio Glucose Hemoglobin A1c Calcium Troponin I Triglycerides Cholesterol LDL Cholesterol, Calc HDL Cholesterol COVID-19 PCR Negative PFSH Medical History HTN (hypertension) Surgical History (Updated 01/15/20 @ 18:25 by Felisa Finley MD) H/O cervical spine surgery Family History (Updated 01/15/20 @ 18:23 by Felisa Finley MD) Grandfather Myocardial infarction Cardiac disease Brother Myocardial infarction Social History household members: significant other Smoking Status: Current every day smoker Discharge Assessment & Plan Assessment and Plan Assessment: 1. Unstable Angina 2. New onset type 2 diabetes 3. Hypertension Plan of Treatment: Patient will be started on IV heparin, will continue aspirin, statin, will continue his telmisartan Patient will be transferred to [facility] definitive cardiac catheterization Discharge Plan Discharge Plan Patient Disposition: [facility] Under care of provider: Dr. Aguirre/Dr. Rubi Discharge orders & Medications Prescriptions: No Action telmisartan [Micardis] 40 MG tablet 40 mg PO QDAY Qty: 0 RF: 0 albuterol sulfate [Ventolin HFA] 90 MCG/PUFF HFA aerosol inhaler 1 puff INH PRN PRN (Reason: Shortness Of Breath Or Wheezing) Qty: 0 RF: 0 oxycodone 5 MG tablet 5 - 10 mg PO Q3HP PRNQty: 40 RF: 0 Discharge Health Status Multidrug resistant organism: No MDRO Diet/Activity/Treatments Diet: Carb-consistent/Diabetic, Low-sodium and Low-cholesterol Liquid consistency: Normal/Thin Food texture: Regular Activity: bed rest Discharge Data Attending Provider: Felisa Finley
--- NOTE | 2020-01-16 20:07 | PC.NURSE ---
TRANSFERED TO [facility] ON HEPARIN DRIP AT 26.4MG/HR
--- NOTE | 2020-01-16 20:36 | DI.NM.S_ITS ---
DATE OF SERVICE: 01/16/2020 PROCEDURE: Exercise stress study only. INDICATION: Chest pain with underlying history of hypertension, family history of coronary artery disease, smoking. RADIOPHARMACEUTICAL: 23.9 millicurie technetium-99m Myoview IV was injected at stress. CARDIAC STRESS: The patient underwent exercise perfusion study under the supervision of an attending staff. He walked on Braxton protocol for 9 minutes 18 seconds, achieved 10.1 METS of workload and functional aerobic impairment 0 percent. Baseline blood pressure 120/88. Peak blood pressure 200/100, suggestive of hypertensive response. He achieved 93 percent of target heart rate. Baseline rhythm was sinus. During stress, there was artifact seen. The patient also has intermittent PVCs. In recovery, the patient felt midsternal chest discomfort, which was on a scale of 1-10, 2 in intensity and some shortness of breath, which got resolved in 3 minutes of recovery. There was no ventricular tachycardia. RAW DATA: There was increased subdiaphragmatic activity. GATED STUDY: Stress LV ejection fraction 51 percent without any obvious wall motion abnormalities. Lung/heart ratio 0.29, which is within normal limits. MYOCARDIAL PERFUSION: Stress supine and stress prone images were compared to each other. Stress supine images revealed large size, severely decreased perfusion of inferior wall, apex, as well as mid to distal anterior wall and septum. During prone, inferior wall and septal defect got completely resolved. However, there was still moderate to severely decreased perfusion of mid to distal anterior wall, apex and distal lateral wall. CONCLUSION: This is an abnormal myocardial perfusion study consistent with proximal left anterior descending occlusive disease. This patient does not have a resting study, but the stress study is abnormal. He is having recurrent anginal pain. He has significant risk factors for coronary artery disease. I discussed the finding with our hospitalist, Dr. Finley, and recommended left heart catheterization. Amrit Jo - GERALDO/lisa/radha doc#: [id number]/job#: [id number] dd: 01/16/2020 17:17:00 dt: 01/16/2020 20:20:00 DICTATING MD/COPIES TO: Kaitlin Henry MD; Felisa Finley MD COPIES MNE: GWENDOLYN;
--- NOTE | 2020-01-23 20:48 | PC.NURSE ---
Late Entry; Heparin drip initiated 01/15 at 18:01 was still infusing at patients time of transfer to tertiary hospital; 19:30.
== END 2020-01-16 19:30 | disposition short-term general hospital (02) ==
LOC: ED 13:00 → AC 13:03
PROVIDERS: Emergency Medicine; Admitting Provider Internal Medicine; Emergency Provider Nurse Practitioner; Referring Provider Nurse Practitioner; Visit Provider Internal Medicine
DX: I20.0 Unstable angina (principal); R07.9 Chest pain, unspecified; F17.210 Nicotine dependence, cigarettes, uncomplicated; I10 Essential (primary) hypertension; E78.5 Hyperlipidemia, unspecified; K21.9 Gastro-esophageal reflux disease without esophagitis; E11.9 Type 2 diabetes mellitus without complications; J42 Unspecified chronic bronchitis; Z79.84 Long term (current) use of oral hypoglycemic drugs; Z11.59 Encounter for screening for other viral diseases
CPT/HCPCS: 36415; 71045; 78451; 78452; 80048; 80053; 80061; 82550; 82553; 83036; 83690; 84484; 85025; 85610; 85730; 87635; 93005; 93016; 93017; 93018; 94762; 96365; 96372; 96375; 99283; 99284; G0378; A9270; A9502; C9113; J1644; J1650

== ENCOUNTER → 2020-02-18 10:09 | Outpatient (CLI) | payer OTHER, SELFPAY ==
[2020-01-15 14:16] VITALS: BMI 34.8
[2020-02-18 11:09] LABS: COVID19 -Nasal RAPID Negative (Negative)
== END ==
PROVIDERS: Visit Provider Physician Assistant
DX: Z20.828 Contact with and (suspected) exposure to other viral communicable diseases (principal)
CPT/HCPCS: 87635

== ENCOUNTER → 2020-03-05 09:53 | Outpatient (CLI) | payer OTHER, SELFPAY ==
[2020-01-15 14:16] VITALS: BMI 34.8
[2020-03-05 11:35] LABS: COVID19 -Nasal RAPID Negative (Negative)
== END ==
PROVIDERS: Visit Provider Nurse Practitioner
DX: Z20.822 Contact with and (suspected) exposure to COVID-19 (principal)
CPT/HCPCS: 87635

== ENCOUNTER → 2020-03-07 07:52 | Outpatient (CLI) | payer OTHER, SELFPAY ==
[2020-01-15 14:16] VITALS: BMI 34.8
--- NOTE | 2020-03-07 | DI.ECHO.S_ITS ---
[facility]---------+ [facility] +---------+ : : [address] : : : : [id number] : : : : Phone: [phone]---------+ Echocardiogram Report + + :Name: RUPINDER WALKER Study Date: 03/07/2020 Height: 70 in : :[facility] ReadingLocation: Weight: 240 lb : : Gender: Male BSA: 2.3 m2 : :: 1965 Age: 55 yrs BP: 106/78 mmHg: :Reason For Study: Cardiomyopathy, Ischemic : :Ordering Physician: Gen : :Theresa Rubi Performed By: Colleen Rutledge : + + Interpretation Summary Limited Echo: 1) Normal left ventricular size, thickness, wall motion, and systolic function (EF 55-60%). 2) Compared to the Echo done 01/17/2020, LVEF has improved from 45-50% to 55- 60% on this study. Procedure: A two-dimensional transthoracic echocardiogram with color flow and Doppler was performed in limited views only to assess left ventricular function and wall motion. The study quality was technically adequate. Comparison is made with the echocardiogram of 01/17/2020. The patient was in normal sinus rhythm during the exam. Left Ventricle: The left ventricle is normal in size. The estimated left ventricular end diastolic volume is 68 ml. The ejection fraction is estimated to be 55-60%. There are no focal wall motion abnormalities. Diastolic parameters suggest probable normal left ventricular diastolic function and normal filling pressures. Pericardium/ Pleura There is no pericardial effusion. MMode/2D Measurements & Calculations LVIDd: 5.0 cm LA A2 area: 19.9 cm2 LVIDs: 3.0 cm LA A4 area: 18.2 cm2 FS: 39.7 % LA length (vol): 5.5 cm IVSd: 0.86 cm LA vol: 55.5 ml LVPWd: 0.73 cm LA vol index: 24.6 ml/m2 LV blood. diameter/BSA (cm/m^2): 2.2 LV sys. diameter/BSA (cm/m^2): 1.3 Doppler Measurements & Calculations MV E max joel: 57.4 cm/sec MV P1/2t max joel: 57.4 cm/sec MV A max joel: 67.1 cm/sec MVA(P1/2t): 2.2 cm2 MV E/A: 0.86 Med Peak E' Joel: 5.4 cm/sec E/E' med: 10.6 Lat Peak E' Joel: 8.9 cm/sec E/E' lat: 6.5 E/e' average: 8.5 MV dec time: 0.34 sec MV P1/2t: 98.3 msec Reading Physician:03:02 PM
--- NOTE | 2020-03-07 18:47 | DI.NM.S_ITS ---
DATE OF SERVICE: 03/07/2020 PROCEDURE PERFORMED: Exercise treadmill stress and rest myocardial perfusion imaging study with gating to assess ejection fraction and regional wall motion, performed as a one-day study. ORDERING PROVIDER: Dr. Doe Rubi. INDICATIONS: The patient is a 55-year-old male with recently discovered multivessel coronary disease for which he underwent stenting to the LAD. This study is performed to assess for any residual ischemia. EXERCISE TREADMILL TESTING: The patient was able to exercise for 9 minutes, 35 seconds on a standard Braxton protocol suggesting average exercise capacity with an PAUL of -3%. He had a normal heart rate response, achieving a maximum heart rate of 159 BPM (98% of his predicted maximum). He had a hypertensive blood pressure response with a resting blood pressure of 120/80, increasing to a maximum of 230/100. He had no chest discomfort or other anginal symptoms. His resting ECG shows sinus rhythm with relatively normal ST segments. With stress, there were no significant ST-segment shifts. He had occasional isolated PVCs, which became slightly more frequent with exercise, although resolved at peak exercise. There was no concerning complex ventricular ectopy. At 8 minutes, 40 seconds of exercise, at a heart rate of 139 BPM, 25.7 millicuries of technetium-99m Myoview was injected and the patient was imaged 20 minutes later using a gated SPECT acquisition protocol. Earlier in the day at rest, he was injected with 14.3 millicuries of technetium-99m Myoview and was imaged 30 minutes later using a gated SPECT acquisition protocol. FINDINGS: 1. Raw data: There is fairly good myocardial tracer uptake. Lung/heart ratio was normal at 0.34 with a normal TID ratio of 1.08. 2. Quantitated gated SPECT: Post-stress ejection fraction is estimated at 74% without any focal wall motion abnormality and specifically the anterior and inferior monsivais appear to have normal contractility. Resting ejection fraction is 69% with an end-diastolic volume of 100 mL. 3. Myocardial perfusion imaging: Post-stress supine images show a mild-to- moderate perfusion defect in the inferior wall, more prominent at the base, in a pattern that would be consistent with diaphragmatic attenuation, supported by its near-complete resolution on the prone images although a very subtle defect remains present, predominantly in the mid inferior wall. The resting images show an identical perfusion pattern without any significant improvement in the inferior defect and no compelling areas of improved perfusion. IMPRESSION: 1. Probable normal myocardial perfusion study. 2. Mild to moderate fixed inferior perfusion defect that nearly completely resolves on prone imaging suggestive of diaphragmatic attenuation artifact, although a previous nontransmural infarction cannot be entirely excluded but there is no demonstrable wall motion abnormality seen in the inferior wall, supporting diaphragmatic attenuation artifact. There is no compelling evidence for any significant myocardial ischemia. 3. Normal left ventricular systolic function without any focal wall motion abnormality. 4. Average exercise capacity without angina or ECG evidence of ischemia but a fairly profound hypertensive blood pressure response to exercise. 5. Compared to his previous study from 01/16/2020, the previous anterior and apical defects have completely resolved. The inferior wall appears similar although improved on today's study, especially distally. He had no angina on today's study. Amrit Jo - Marva/radha doc#: [id number]/job#: [id number] dd: 03/07/2020 17:35:00 dt: 03/07/2020 18:34:00 DICTATING /COPIES TO: Felton Bobby MD; Gen Rubi MD COPIES MNE: ERICKA;
== END ==
PROVIDERS: PCP Student in an Organized Health Care Education/Training Program; Referring Provider Internal Medicine Cardiovascular Disease; Visit Provider Internal Medicine Cardiovascular Disease
DX: I25.5 Ischemic cardiomyopathy (principal); I25.10 Atherosclerotic heart disease of native coronary artery without angina pectoris; Z95.5 Presence of coronary angioplasty implant and graft
CPT/HCPCS: 78452; 93017; 93307; A9502

== ENCOUNTER 2020-04-30 08:30 | Outpatient (RCR) | payer OTHER, SELFPAY ==
[2020-01-15 14:16] VITALS: BMI 34.8
== END 2020-04-30 10:30 ==
LOC: CAR 08:30
PROVIDERS: Referring Provider Internal Medicine Cardiovascular Disease; Visit Provider Internal Medicine Cardiovascular Disease
DX: Z95.5 Presence of coronary angioplasty implant and graft (principal)
CPT/HCPCS: 93798

== ENCOUNTER → 2021-04-22 13:36 | Outpatient (CLI) | payer OTHER, SELFPAY ==
[2020-01-15 14:16] VITALS: BMI 34.8
--- NOTE | 2021-04-22 | DI.MRI.S_ITS ---
PROCEDURE: MR SHOULDER RT WO CON INDICATIONS: Rule out rotator cuff tear bilateral shoulders Pain TECHNIQUE: Noncontrast oblique coronal T2 fast spin echo with fat saturation, oblique sagittal T1 spin echo and T2 fast spin echo with fat saturation, axial T1 spin echo and T2 fast spin echo with fat saturation through the shoulder. COMPARISON: [facility] [place], CR, XR SHOULDER 2+ VIEWS BILATERAL, 04/06/2021, 10:49. FINDINGS: Image quality: Excellent. Rotator cuff: There is full-thickness tearing of the supraspinatus tendon at its distal footprint measuring 1.0 cm in anterior-posterior dimension with proximal tendon retraction measuring up to 1.6 cm. Mild to moderate infraspinatus tendinosis with focal low-grade intrasubstance tearing at its mid footprint with adjacent traction cystic changes. The teres minor tendon is intact. There is moderate subscapularis tendinosis with low-grade intrasubstance tearing at its superior insertion. There is no significant rotator cuff muscle atrophy. Bones and bursae: No acute trabecular bone injury is seen. Chronic traction cystic changes are seen at the posterosuperior humeral head as well as the anterior greater tuberosity near the rotator cuff tendon insertions. Moderate degenerative changes are seen in the acromioclavicular joint with subchondral cystic changes and subchondral edema as well as small marginal osteophytes. A small subacromial/subdeltoid bursal effusion is present, which communicates with the glenohumeral joint space. Capsule and soft tissues: Small amount of fluid signal is seen at the superior chondral labral junction, which is most likely a normal sulcus rather than a labral tear. The intra-articular portion of the biceps long head tendon demonstrates mild tendinosis. There is mild diffuse labral degeneration. Normal fat signal is seen within the rotator interval. Inferior glenohumeral ligament is borderline in thickness. IMPRESSION: 1. Full-thickness tearing of the supraspinatus tendon at its distal insertion measuring 1.0 cm in anterior-posterior dimension with proximal tendon retraction measuring 1.6 cm. 2. Mild to moderate infraspinatus tendinosis with focal low-grade intrasubstance tearing at the mid footprint. 3. Low-grade intrasubstance tearing of the subscapularis tendon at the superior insertion superimposed on moderate tendinosis. 4. Mild tendinosis of the biceps long head tendon. 5. Mild labral degeneration without a discrete tear. 6. Moderate acromioclavicular osteoarthrosis. 7. A small subacromial/subdeltoid bursal effusion communicates with the glenohumeral joint space. Dictated by: Jose Estrella M.D. on 04/23/2021 at 8:26 Approved by: Jose Estrella M.D. on 04/23/2021 at 8:37
--- NOTE | 2021-04-22 | DI.MRI.S_ITS ---
PROCEDURE: MR SHOULDER LT WO CON INDICATIONS: Rule out rotator cuff tear bilateral shoulders TECHNIQUE: Noncontrast oblique coronal T2 fast spin echo with fat saturation, oblique sagittal T1 spin echo and T2 fast spin echo with fat saturation, axial T1 spin echo and T2 fast spin echo with fat saturation through the shoulder. COMPARISON: [facility] [place], CR, XR SHOULDER 2+ VIEWS BILATERAL, 04/06/2021, 10:49. FINDINGS: Image quality: Excellent. Rotator cuff: There is moderate to severe supraspinatus tendinosis with superimposed high-grade partial intrasubstance tearing at the distal insertion that measures 1.8 cm in anterior-posterior dimension and likely involves the anterior fibers of the infraspinatus tendon. Communication with the bursal surface is difficult to exclude. A few attenuated articular sided fibers appear to remain in continuity. There is moderate infraspinatus tendinosis. The teres minor and subscapularis tendons are intact. There is no significant rotator cuff muscle atrophy. Bones and bursae: No acute trabecular bone injury is seen. Small chronic traction cystic changes are seen at the posterosuperior humeral head. Focal mild cartilage fissuring is seen in the central glenoid. Moderate degenerative changes are seen in the acromioclavicular joint with subchondral edema and subchondral cystic changes as well as formation of small marginal osteophytes. There is a trace amount of subacromial/subdeltoid bursal fluid. No significant glenohumeral effusion is seen. Capsule and soft tissues: Mild diffuse labral degeneration with superimposed nondisplaced tearing of the posterosuperior to posteroinferior labrum. A lobular paralabral cyst is seen posteriorly measuring approximately 1.1 x 0.7 x 1.2 cm. The proximal biceps long head tendon is intact. There is normal fat in the rotator interval. The glenohumeral ligaments appear to be intact. IMPRESSION: 1. High-grade partial intrasubstance tearing of the distal supraspinatus tendon and the anterior fibers of the infraspinatus tendon measuring 1.8 cm in anterior-posterior dimension, which may communicate with the bursal surface. Moderate to severe supraspinatus tendinosis and moderate infraspinatus tendinosis. 2. Nondisplaced tearing of the posterosuperior to posteroinferior labrum with a lobular posterior paralabral cyst measuring up to 1.2 cm. Mild diffuse glenoid labral degeneration. 3. Moderate acromioclavicular joint osteoarthrosis. Dictated by: Jose Estrella M.D. on 04/23/2021 at 8:37 Approved by: Jose Estrella M.D. on 04/23/2021 at 8:46
== END ==
PROVIDERS: PCP Student in an Organized Health Care Education/Training Program; Referring Provider Orthopaedic Surgery; Visit Provider Orthopaedic Surgery
DX: M75.121 Complete rotator cuff tear or rupture of right shoulder, not specified as traumatic (principal); M75.112 Incomplete rotator cuff tear or rupture of left shoulder, not specified as traumatic; M19.011 Primary osteoarthritis, right shoulder; M19.012 Primary osteoarthritis, left shoulder; S43.492A Other sprain of left shoulder joint, initial encounter
CPT/HCPCS: 73221

== ENCOUNTER → 2021-06-11 15:35 | Outpatient (CLI) | payer OTHER, SELFPAY ==
[2020-01-15 14:16] VITALS: BMI 34.8
--- NOTE | 2021-06-11 | DI.MRI.S_ITS ---
PROCEDURE: MR LUMBAR SPINE WO CON INDICATIONS: Spondylosis without myelopathy or radiculopathy, lumbar pam TECHNIQUE: Noncontrast sagittal T1 spin echo and T2 fast echo, sagittal STIR, and T2 fast spin echo through the lumbar spine. In cases with scoliosis, additional coronal T2 fast spin echo may be performed. COMPARISON: [facility], MR, MR LUMBAR SPINE WO CON, 01/17/2018, 11:49. [facility], CR, XR LUMBAR SPINE WITH OBLIQUES PLUS FLEXION EXTENSION, 05/26/2021, 9:08. FINDINGS: Image quality: Excellent. Alignment and Curvature: There is 16 millimeters of L5-S1 anterolisthesis secondary to bilateral L5 pars interarticularis defects. Bone Marrow: Marrow is of normal overall signal. No acute vertebral body compression fractures. Spinal Cord: Conus medullaris terminates at the L1 level. Visualized cord demonstrates normal signal and size. Paraspinous Soft Tissues: No paravertebral masses. T12-L1: Normal appearance. L1-L2: Loss of disc signal. Minimal, diffuse disc bulge. No central stenosis. No neural foraminal narrowing. No neural compression. L2-L3: Normal appearance. L3-L4: Loss of disc signal. Mild, diffuse disc bulge. No central stenosis. No neural foraminal narrowing. No neural compression. L4-L5: Loss of disc signal. Mild, diffuse disc bulge. Mild bilateral facet hypertrophy. No central stenosis. Moderate to severe bilateral subarticular neural foraminal narrowing with slight compression of the exiting L4 nerve roots. L5-S1: Loss of disc signal and height. Mild, diffuse disc bulge. Mild bilateral facet hypertrophy. No central stenosis. Severe bilateral neural foraminal narrowing with marked compression of the exiting bilateral L5 nerve roots. IMPRESSION: 1. Grade 2 L5-S1 isthmic spondylolisthesis. 2. Multilevel degenerative disc disease. 3. Multilevel facet arthropathy. 4. No severe central canal narrowing. 5. Severe bilateral L5-S1 neural foraminal narrowing with marked compression of the exiting bilateral L5 nerve roots. Moderate to severe bilateral subarticular L4-L5 neural foraminal narrowing with slight compression of the exiting bilateral L4 nerve roots. Dictated by: Doreen Hernandez MD, PhD on 06/11/2021 at 17:18 Approved by: Doreen Hernandez MD, PhD on 06/11/2021 at 17:22
== END ==
PROVIDERS: PCP Student in an Organized Health Care Education/Training Program; Referring Provider Physical Medicine & Rehabilitation Pain Medicine; Visit Provider Physical Medicine & Rehabilitation Pain Medicine
DX: M47.816 Spondylosis without myelopathy or radiculopathy, lumbar region (principal); M47.817 Spondylosis without myelopathy or radiculopathy, lumbosacral region; M48.061 Spinal stenosis, lumbar region without neurogenic claudication; M48.07 Spinal stenosis, lumbosacral region; M43.17 Spondylolisthesis, lumbosacral region; M51.36 Other intervertebral disc degeneration, lumbar region
CPT/HCPCS: 72148

== ENCOUNTER 2021-07-11 14:49 | Emergency (ER) | payer OTHER, SELFPAY ==
[2020-01-15 14:16] VITALS: BMI 34.8
[2021-07-11] VITALS (24 sets, daily range): BP systolic 119–186; BP diastolic 58–98; PULSE 65–81; RESP 12–25; TEMP 35.7; O2SAT 95–98; BMI 35.9
--- NOTE | 2021-07-11 14:56 | DI.RAD.S_ITS ---
PROCEDURE: XR CHEST 1V INDICATIONS: chest pain TECHNIQUE: One view of the chest was acquired. COMPARISON: None. FINDINGS: Surgical changes and devices: Lower cervical spine disc replacements. Lungs and pleura: Lungs are clear. No pleural effusions or pneumothorax. Mediastinum: Mediastinal contours appear normal. Heart size is normal. Bones and chest wall: No suspicious bony lesions. Overlying soft tissues appear unremarkable. Old healed right 8th rib fracture IMPRESSION: No acute cardiopulmonary findings Approved by: Randal Guajardo M.D. on 07/11/2021 at 14:54
--- NOTE | 2021-07-11 15:14 | ED_ITS ---
HPI - Chest Pain <Jazmin Espinal DO - Last Filed: 07/24/21 01:57> General Chief Complaint: Chest Pain Stated Complaint: chest pain last hour a half-came on sudden Time Seen by Provider: 07/11/21 15:07 History of Present Illness HPI narrative: Patient is a 56-year-old male with history of coronary artery disease stent in his LAD followed by Dr. Bowers out of [facility], presenting today with chest pain. He states he was mowing the lawn when he got some chest burning which he thought was acid reflux. He needed to stop. No radiation of pain. He has some mild shortness of breath. Decided to come to the emergency department for evaluation. Upper jaw discomfort. He is currently on antibiotics. He has not had any facial swelling he denies any fever or chills. No nausea. Related Data Home Medications Medication Instructions Recorded Confirmed telmisartan 40 mg tablet (Micardis) 40 mg PO QDAY #0 01/26/16 07/12/21 albuterol sulfate 90 mcg/actuation 1 puff INH PRN PRN #0 03/17/16 07/12/21 aerosol inhaler (Ventolin HFA) amoxicillin 500 mg capsule 500 mg PO Q8H 07/12/21 07/12/21 aspirin 81 mg tablet,delayed 81 mg PO DAILY 07/12/21 07/12/21 release dulaglutide 1.5 mg/0.5 mL 1.5 mg SUBCUT WEEKLY 07/12/21 07/12/21 subcutaneous pen injector (Trulicity) metformin 500 mg tablet 500 mg PO BID 07/12/21 07/12/21 metoprolol succinate 25 mg 25 mg PO DAILY 07/12/21 07/12/21 tablet,extended release 24 hr oxycodone 5 mg tablet 5 - 10 mg PO Q3HP PRN 07/12/21 07/12/21 Allergies Allergy/AdvReac Type Severity Reaction Status Date / Time No Known Allergies Allergy Verified 07/11/21 14:56 Review of Systems <Jazmin Espinal DO - Last Filed: 07/24/21 01:57> Review of Systems Narrative: GENERAL: Denies chills, fatigue, malaise, fever, sweats, travel HEENT: Denies sinus pain, ear pain, sore throat, difficulty swallowing, neck pain RESPIRATORY: Denies dyspnea, cough, wheezing, hemoptysis, sputum. CARDIOVASCULAR: See HPI GASTROINTESTINAL: Denies nausea, vomiting, abdominal pain, diarrhea, consti pation, melena. : Denies dysuria, frequency, incontinence, hematuria, urinary retention, flank pain. MUSCULOSKELETAL: Denies weakness, joint pain, or bony pain SKIN: No rash, no erythema, no pruritus NEUROLOGIC: Denies weakness, dizziness, headache, numbness, change in speech, confusion PSYCHIATRIC: No concerning psychosocial issues. 12 point review of systems is negative except for those stated above and HPI Patient History <Jazmin Espinal DO - Last Filed: 07/24/21 01:57> Medical History (Updated 07/13/21 @ 01:56 by Perico Garcia DO) HTN (hypertension) Surgical History (Updated 01/15/20 @ 18:25 by Felisa Finley MD) H/O cervical spine surgery Family History (Updated 01/15/20 @ 18:23 by Felisa Finley MD) Grandfather Myocardial infarction Cardiac disease Brother Myocardial infarction Social History household members: significant other Smoking Status: Current every day smoker Smoking Status: Current every day smoker Substance Use Type: marijuana Exam <Jazmin Espinal DO - Last Filed: 07/24/21 01:57> Initial Vital Signs Initial Vital Signs: Vital Signs Temperature 96.2 F L 07/11/21 14:54 Pulse Rate 77 07/11/21 14:54 Respiratory Rate 12 07/11/21 14:54 Blood Pressure 186/98 H 07/11/21 14:54 Pulse Oximetry 95 07/11/21 14:54 GENERAL: Alert 56-year-old male appears in no acute distress no diaphoresis HEENT: Head atraumatic,EOMI, pupils reactive, face symmetric, [moist] mucous membranes CARDIOVASCULAR: Regular rate and rhythm without murmurs, rubs or gallops. RESPIRATORY: Breath sounds equal bilaterally, no wheezes rales or rhonchi. ABDOMEN: Soft, nontender. Normoactive bowel sounds all 4 quadrants. No guarding or rebound. EXTREMITIES: Normal range of motion, no clubbing or edema. Neurovascularly intact NEUROLOGICAL: Alert and oriented x4.Normal gait and speech. SKIN: Warm, dry, no laceration, no petechiae, no rashes or lesions. <Perioc Garcia DO - Last Filed: 07/14/21 04:26> Initial Vital Signs Initial Vital Signs: Vital Signs Temperature 96.2 F L 07/11/21 14:54 Pulse Rate 77 07/11/21 14:54 Respiratory Rate 12 07/11/21 14:54 Blood Pressure 186/98 H 07/11/21 14:54 Pulse Oximetry 95 07/11/21 14:54 <Elsa Patton MD - Last Filed: 07/13/21 18:18> Initial Vital Signs Initial Vital Signs: Vital Signs Temperature 96.2 F L 07/11/21 14:54 Pulse Rate 77 07/11/21 14:54 Respiratory Rate 12 07/11/21 14:54 Blood Pressure 186/98 H 07/11/21 14:54 Pulse Oximetry 95 07/11/21 14:54 Course <Jazmin Espinal DO - Last Filed: 07/24/21 01:57> Orders Ordered: Discontinued Medications Amoxicillin (Amoxicillin 250 Mg Capsule) 500 mg PO NOW ONE Stop: 07/11/21 19:48 Last Admin: 07/11/21 20:44 Dose: 500 mg Documented by: ASHIA Amoxicillin (Amoxicillin 250 Mg Capsule) 500 mg PO TID [facility] Last Admin: 07/13/21 08:58 Dose: Not Given Documented by: Admin: 07/12/21 21:00 Dose: Not Given Documented by: Admin: 07/12/21 15:03 Dose: Not Given Documented by: Admin: 07/12/21 09:04 Dose: 500 mg Documented by: WIN Aspirin (Aspirin 81 Mg Chew Tab) 324 mg PO NOW ONE Stop: 07/11/21 15:08 Last Admin: 07/11/21 15:17 Dose: 324 mg Documented by: FILIPE Aspirin (Aspirin Ec 325 Mg Tablet) 325 mg PO DAILY [facility] Last Admin: 07/13/21 08:56 Dose: 325 mg Documented by: Admin: 07/12/21 14:47 Dose: 325 mg Documented by: LAY Atorvastatin Calcium (Atorvastatin 20 Mg Tablet) 80 mg PO NOW ONE Stop: 07/11/21 19:48 Last Admin: 07/11/21 20:43 Dose: 80 mg Documented by: ATAYLOR Atorvastatin Calcium (Atorvastatin 20 Mg Tablet) 80 mg PO BEDTIME REANNA Last Admin: 07/12/21 21:01 Dose: 80 mg Documented by: LAY Heparin Sodium (Porcine) (Heparin 5,000 Unit/Ml Vial) 5,000 unit IV NOW ONE Stop: 07/11/21 19:34 Last Admin: 07/11/21 19:51 Dose: 5,000 unit Documented by: ATAYLOR Heparin Sodium (Porcine) (Heparin 5,000 Unit/Ml Vial) 3,000 unit IV NOW ONE Stop: 07/12/21 16:51 Last Admin: 07/12/21 16:53 Dose: 3,000 unit Documented by: LAY Heparin Sodium/Dextrose (Heparin Drip) 25,000 unit in 500 mls @ 20 mls/hr IV CONT REANNA; Protocol Last Titration: 07/13/21 14:15 Dose: 0 units/hr, 0 mls/hr Documented by: Titration: 07/13/21 12:41 Dose: 1,200 units/hr, 24 mls/hr Documented by: Admin: 07/12/21 19:37 Dose: 1,200 units/hr, 24 mls/hr Documented by: Titration: 07/12/21 19:23 Dose: 1,200 units/hr, 24 mls/hr Documented by: Titration: 07/12/21 16:53 Dose: 1,200 units/hr, 24 mls/hr Documented by: Titration: 07/12/21 09:59 Dose: 1,100 units/hr, 22 mls/hr Documented by: Titration: 07/12/21 02:53 Dose: 1,050 units/hr, 21 mls/hr Documented by: Admin: 07/11/21 19:55 Dose: 1,000 units/hr, 20 mls/hr Documented by: ASHIA Nitroglycerin (Nitroglycerin) 50 mg in 250 mls @ 1.5 mls/hr IV TITRATE REANNA; Protocol Last Titration: 07/12/21 15:45 Dose: 0 mcg/min, 0 mls/hr Documented by: Titration: 07/12/21 14:43 Dose: 5 mcg/min, 1.5 mls/hr Documented by: Titration: 07/12/21 13:52 Dose: 7.5 mcg/min, 2.25 mls/hr Documented by: RLCRESCENCIOI Titration: 07/11/21 22:00 Dose: 10 mcg/min, 3 mls/hr Documented by: Titration: 07/11/21 21:30 Dose: 7.5 mcg/min, 2.25 mls/hr Documented by: Admin: 07/11/21 20:07 Dose: 5 mcg/min, 1.5 mls/hr Documented by: ASHIA Nitroglycerin (Nitroglycerin 0.4 Mg Sl Tab) 0.4 mg SL [id number] PRN PRN Reason: Chest Pain Last Admin: 07/11/21 15:53 Dose: 0.4 mg Documented by: Admin: 07/11/21 15:29 Dose: 0.4 mg Documented by: Admin: 07/11/21 15:17 Dose: 0.4 mg Documented by: FILIPE Vital Signs Vital signs: Vital Signs - 8 hr 07/13/21 10:30 07/13/21 11:00 07/13/21 11:30 Pulse Rate 72 75 76 Respiratory Rate 16 16 26 H Blood Pressure Pulse Oximetry 93 92 94 07/13/21 12:00 07/13/21 12:01 07/13/21 12:30 Pulse Rate 87 88 81 Respiratory Rate 26 H 50 H 25 H Blood Pressure 167/90 H Pulse Oximetry 94 92 93 07/13/21 13:00 07/13/21 13:30 Pulse Rate 78 75 Respiratory Rate 21 23 Blood Pressure Pulse Oximetry 94 96 <Perico Garcia DO - Last Filed: 07/14/21 04:26> Orders Ordered: Discontinued Medications Amoxicillin (Amoxicillin 250 Mg Capsule) 500 mg PO NOW ONE Stop: 07/11/21 19:48 Last Admin: 07/11/21 20:44 Dose: 500 mg Documented by: ASHIA Amoxicillin (Amoxicillin 250 Mg Capsule) 500 mg PO TID [facility] Last Admin: 07/13/21 08:58 Dose: Not Given Documented by: Admin: 07/12/21 21:00 Dose: Not Given Documented by: Admin: 07/12/21 15:03 Dose: Not Given Documented by: Admin: 07/12/21 09:04 Dose: 500 mg Documented by: WIN Aspirin (Aspirin 81 Mg Chew Tab) 324 mg PO NOW ONE Stop: 07/11/21 15:08 Last Admin: 07/11/21 15:17 Dose: 324 mg Documented by: FILIPE Aspirin (Aspirin Ec 325 Mg Tablet) 325 mg PO DAILY [facility] Last Admin: 07/13/21 08:56 Dose: 325 mg Documented by: Admin: 07/12/21 14:47 Dose: 325 mg Documented by: LAY Atorvastatin Calcium (Atorvastatin 20 Mg Tablet) 80 mg PO NOW ONE Stop: 07/11/21 19:48 Last Admin: 07/11/21 20:43 Dose: 80 mg Documented by: ASHIA Atorvastatin Calcium (Atorvastatin 20 Mg Tablet) 80 mg PO BEDTIME [facility] Last Admin: 07/12/21 21:01 Dose: 80 mg Documented by: LAY Heparin Sodium (Porcine) (Heparin 5,000 Unit/Ml Vial) 5,000 unit IV NOW ONE Stop: 07/11/21 19:34 Last Admin: 07/11/21 19:51 Dose: 5,000 unit Documented by: ASHIA Heparin Sodium (Porcine) (Heparin 5,000 Unit/Ml Vial) 3,000 unit IV NOW ONE Stop: 07/12/21 16:51 Last Admin: 07/12/21 16:53 Dose: 3,000 unit Documented by: LAY Heparin Sodium/Dextrose (Heparin Drip) 25,000 unit in 500 mls @ 20 mls/hr IV CONT [facility]; Protocol Last Titration: 07/13/21 14:15 Dose: 0 units/hr, 0 mls/hr Documented by: Titration: 07/13/21 12:41 Dose: 1,200 units/hr, 24 mls/hr Documented by: Admin: 07/12/21 19:37 Dose: 1,200 units/hr, 24 mls/hr Documented by: Titration: 07/12/21 19:23 Dose: 1,200 units/hr, 24 mls/hr Documented by: Titration: 07/12/21 16:53 Dose: 1,200 units/hr, 24 mls/hr Documented by: Titration: 07/12/21 09:59 Dose: 1,100 units/hr, 22 mls/hr Documented by: Titration: 07/12/21 02:53 Dose: 1,050 units/hr, 21 mls/hr Documented by: Admin: 07/11/21 19:55 Dose: 1,000 units/hr, 20 mls/hr Documented by: ASHIA Nitroglycerin (Nitroglycerin) 50 mg in 250 mls @ 1.5 mls/hr IV TITRATE REANNA; Protocol Last Titration: 07/12/21 15:45 Dose: 0 mcg/min, 0 mls/hr Documented by: Titration: 07/12/21 14:43 Dose: 5 mcg/min, 1.5 mls/hr Documented by: Titration: 07/12/21 13:52 Dose: 7.5 mcg/min, 2.25 mls/hr Documented by: Titration: 07/11/21 22:00 Dose: 10 mcg/min, 3 mls/hr Documented by: Titration: 07/11/21 21:30 Dose: 7.5 mcg/min, 2.25 mls/hr Documented by: Admin: 07/11/21 20:07 Dose: 5 mcg/min, 1.5 mls/hr Documented by: ATAYLLOW Nitroglycerin (Nitroglycerin 0.4 Mg Sl Tab) 0.4 mg SL [id number] PRN PRN Reason: Chest Pain Last Admin: 07/11/21 15:53 Dose: 0.4 mg Documented by: Admin: 07/11/21 15:29 Dose: 0.4 mg Documented by: Admin: 07/11/21 15:17 Dose: 0.4 mg Documented by: FILIPE Vital Signs Vital signs: Vital Signs - 8 hr 07/13/21 10:30 07/13/21 11:00 07/13/21 11:30 Pulse Rate 72 75 76 Respiratory Rate 16 16 26 H Blood Pressure Pulse Oximetry 93 92 94 07/13/21 12:00 07/13/21 12:01 07/13/21 12:30 Pulse Rate 87 88 81 Respiratory Rate 26 H 50 H 25 H Blood Pressure 167/90 H Pulse Oximetry 94 92 93 07/13/21 13:00 07/13/21 13:30 Pulse Rate 78 75 Respiratory Rate 21 23 Blood Pressure Pulse Oximetry 94 96 <Elsa Patton MD - Last Filed: 07/13/21 18:18> Orders Ordered: Discontinued Medications Amoxicillin (Amoxicillin 250 Mg Capsule) 500 mg PO NOW ONE Stop: 07/11/21 19:48 Last Admin: 07/11/21 20:44 Dose: 500 mg Documented by: ASHIA Amoxicillin (Amoxicillin 250 Mg Capsule) 500 mg PO TID [facility] Last Admin: 07/13/21 08:58 Dose: Not Given Documented by: Admin: 07/12/21 21:00 Dose: Not Given Documented by: Admin: 07/12/21 15:03 Dose: Not Given Documented by: Admin: 07/12/21 09:04 Dose: 500 mg Documented by: WIN Aspirin (Aspirin 81 Mg Chew Tab) 324 mg PO NOW ONE Stop: 07/11/21 15:08 Last Admin: 07/11/21 15:17 Dose: 324 mg Documented by: FILIPE Aspirin (Aspirin Ec 325 Mg Tablet) 325 mg PO DAILY [facility] Last Admin: 07/13/21 08:56 Dose: 325 mg Documented by: Admin: 07/12/21 14:47 Dose: 325 mg Documented by: LAY Atorvastatin Calcium (Atorvastatin 20 Mg Tablet) 80 mg PO NOW ONE Stop: 07/11/21 19:48 Last Admin: 07/11/21 20:43 Dose: 80 mg Documented by: ASHIA Atorvastatin Calcium (Atorvastatin 20 Mg Tablet) 80 mg PO BEDTIME [facility] Last Admin: 07/12/21 21:01 Dose: 80 mg Documented by: LAY Heparin Sodium (Porcine) (Heparin 5,000 Unit/Ml Vial) 5,000 unit IV NOW ONE Stop: 07/11/21 19:34 Last Admin: 07/11/21 19:51 Dose: 5,000 unit Documented by: ASHIA Heparin Sodium (Porcine) (Heparin 5,000 Unit/Ml Vial) 3,000 unit IV NOW ONE Stop: 07/12/21 16:51 Last Admin: 07/12/21 16:53 Dose: 3,000 unit Documented by: LAY Heparin Sodium/Dextrose (Heparin Drip) 25,000 unit in 500 mls @ 20 mls/hr IV CONT [facility]; Protocol Last Titration: 07/13/21 14:15 Dose: 0 units/hr, 0 mls/hr Documented by: Titration: 07/13/21 12:41 Dose: 1,200 units/hr, 24 mls/hr Documented by: Admin: 07/12/21 19:37 Dose: 1,200 units/hr, 24 mls/hr Documented by: Titration: 07/12/21 19:23 Dose: 1,200 units/hr, 24 mls/hr Documented by: Titration: 07/12/21 16:53 Dose: 1,200 units/hr, 24 mls/hr Documented by: Titration: 07/12/21 09:59 Dose: 1,100 units/hr, 22 mls/hr Documented by: Titration: 07/12/21 02:53 Dose: 1,050 units/hr, 21 mls/hr Documented by: Admin: 07/11/21 19:55 Dose: 1,000 units/hr, 20 mls/hr Documented by: ATAYLOR Nitroglycerin (Nitroglycerin) 50 mg in 250 mls @ 1.5 mls/hr IV TITRATE REANNA; Protocol Last Titration: 07/12/21 15:45 Dose: 0 mcg/min, 0 mls/hr Documented by: Titration: 07/12/21 14:43 Dose: 5 mcg/min, 1.5 mls/hr Documented by: Titration: 07/12/21 13:52 Dose: 7.5 mcg/min, 2.25 mls/hr Documented by: Titration: 07/11/21 22:00 Dose: 10 mcg/min, 3 mls/hr Documented by: Titration: 07/11/21 21:30 Dose: 7.5 mcg/min, 2.25 mls/hr Documented by: Admin: 07/11/21 20:07 Dose: 5 mcg/min, 1.5 mls/hr Documented by: ATAYLOR Nitroglycerin (Nitroglycerin 0.4 Mg Sl Tab) 0.4 mg SL [id number] PRN PRN Reason: Chest Pain Last Admin: 07/11/21 15:53 Dose: 0.4 mg Documented by: Admin: 07/11/21 15:29 Dose: 0.4 mg Documented by: Admin: 07/11/21 15:17 Dose: 0.4 mg Documented by: FILIPE Vital Signs Vital signs: Vital Signs - 8 hr 07/13/21 10:30 07/13/21 11:00 07/13/21 11:30 Pulse Rate 72 75 76 Respiratory Rate 16 16 26 H Blood Pressure Pulse Oximetry 93 92 94 07/13/21 12:00 07/13/21 12:01 07/13/21 12:30 Pulse Rate 87 88 81 Respiratory Rate 26 H 50 H 25 H Blood Pressure 167/90 H Pulse Oximetry 94 92 93 07/13/21 13:00 07/13/21 13:30 Pulse Rate 78 75 Respiratory Rate 21 23 Blood Pressure Pulse Oximetry 94 96 MDM - Chest Pain <Jazmin Espinal DO - Last Filed: 07/24/21 01:57> Lab Data Result diagrams: 07/13/21 05:58 07/13/21 05:58 Labs: Lab Results 07/11/21 07/11/21 07/11/21 Range/Units 16:33 16:33 16:33 WBC 14.6 H (4.5-11.0) X10^3/uL RBC 4.57 (4.5-5.9) X10^6/uL Hgb 14.3 (13.5-17.5) g/dL Hct 40.9 L (41-53) % MCV 89.5 (80-100) fL MCH 31.4 (26-34) PG MCHC 35.1 (30-36) % RDW 13.7 (11.6-14.8) % Plt Count 210 (150-400) X10^3/uL Neut % (Auto) Not Reportable Lymph % (Auto) Not Reportable [place] % (Auto) Not Reportable Eos % (Auto) Not Reportable Baso % (Auto) Not Reportable Neut # (Auto) (4553-9628) /uL Lymph # (Auto) Not Reportable [place] # (Auto) Not Reportable Eos # (Auto) (0-450) /uL Baso # (Auto) Not Reportable Total Counted 100 Seg Neutrophils % 75.0 H (38-70) % Band Neutrophils % 3.0 (3-7) % Lymphocytes % (Manual) 16.0 L (25-45) % Monocytes % (Manual) 6.0 (2-11) % Neutrophils # (Manual) 00202 H (5257-4996) /uL RBC Morphology Normal morphology APTT (26.4-36.2) SECONDS Sodium 137 (137-145) mmol/L Potassium 3.9 (3.4-5.1) mmol/L Chloride 102 (98-107) mmol/L Carbon Dioxide 25 (22-32) mmol/L BUN 14 (9-20) mg/dL Creatinine 0.76 (0.66-1.25) mg/dL Estimated GFR > 60 (>60) mL/min BUN/Creatinine Ratio 18.4 (6-22) Glucose 174 H (70-100) mg/dL Calcium 9.4 (8.4-10.2) mg/dL Magnesium 1.6 (1.6-2.3) mg/dL Total Bilirubin 0.5 (0.2-1.3) mg/dL AST 41 (17-59) IU/L ALT 60 H (<50) IU/L Alkaline Phosphatase 123 (38-126) U/L Total Creatine Kinase 107 (55-170) U/L CK-MB (CK-2) 1.29 (<2.37) ng/mL CK-MB (CK-2) Rel Index 1.2 L (1.5-5.0) % Troponin I 0.062 H (0.01-0.034) ng/mL NT-Pro-B Natriuret Pep 20 (<125) pg/mL Total Protein 6.6 (6.3-8.2) g/dL Albumin 3.9 (3.5-5.0) g/dL Globulin 2.7 (1.7-4.1) g/dL Albumin/Globulin Ratio 1.4 (1.0-2.8) Lipase 140 (23-300) U/L SARS-CoV-2 (PCR) (Negative) 07/11/21 07/11/21 07/11/21 Range/Units 16:33 18:31 20:17 WBC (4.5-11.0) X10^3/uL RBC (4.5-5.9) X10^6/uL Hgb (13.5-17.5) g/dL Hct (41-53) % MCV (80-100) fL MCH (26-34) PG MCHC (30-36) % RDW (11.6-14.8) % Plt Count (150-400) X10^3/uL Neut % (Auto) Lymph % (Auto) [place] % (Auto) Eos % (Auto) Baso % (Auto) Neut # (Auto) (4363-1017) /uL Lymph # (Auto) [place] # (Auto) Eos # (Auto) (0-450) /uL Baso # (Auto) Total Counted Seg Neutrophils % (38-70) % Band Neutrophils % (3-7) % Lymphocytes % (Manual) (25-45) % Monocytes % (Manual) (2-11) % Neutrophils # (Manual) (2765-2287) /uL RBC Morphology APTT 28 (26.4-36.2) SECONDS Sodium (137-145) mmol/L Potassium (3.4-5.1) mmol/L Chloride (98-107) mmol/L Carbon Dioxide (22-32) mmol/L BUN (9-20) mg/dL Creatinine (0.66-1.25) mg/dL Estimated GFR (>60) mL/min BUN/Creatinine Ratio (6-22) Glucose (70-100) mg/dL Calcium (8.4-10.2) mg/dL Magnesium (1.6-2.3) mg/dL Total Bilirubin (0.2-1.3) mg/dL AST (17-59) IU/L ALT (<50) IU/L Alkaline Phosphatase (38-126) U/L Total Creatine Kinase (55-170) U/L CK-MB (CK-2) (<2.37) ng/mL CK-MB (CK-2) Rel Index (1.5-5.0) % Troponin I 0.872 H* (0.01-0.034) ng/mL NT-Pro-B Natriuret Pep (<125) pg/mL Total Protein (6.3-8.2) g/dL Albumin (3.5-5.0) g/dL Globulin (1.7-4.1) g/dL Albumin/Globulin Ratio (1.0-2.8) Lipase (23-300) U/L SARS-CoV-2 (PCR) Negative (Negative) 07/12/21 07/12/21 07/12/21 Range/Units 02:20 08:15 09:05 WBC (4.5-11.0) X10^3/uL RBC (4.5-5.9) X10^6/uL Hgb (13.5-17.5) g/dL Hct (41-53) % MCV (80-100) fL MCH (26-34) PG MCHC (30-36) % RDW (11.6-14.8) % Plt Count (150-400) X10^3/uL Neut % (Auto) Lymph % (Auto) [place] % (Auto) Eos % (Auto) Baso % (Auto) Neut # (Auto) (0093-5765) /uL Lymph # (Auto) [place] # (Auto) Eos # (Auto) (0-450) /uL Baso # (Auto) Total Counted Seg Neutrophils % (38-70) % Band Neutrophils % (3-7) % Lymphocytes % (Manual) (25-45) % Monocytes % (Manual) (2-11) % Neutrophils # (Manual) (1349-9667) /uL RBC Morphology APTT 48 H D 44 H (26.4-36.2) SECONDS Sodium (137-145) mmol/L Potassium (3.4-5.1) mmol/L Chloride (98-107) mmol/L Carbon Dioxide (22-32) mmol/L BUN (9-20) mg/dL Creatinine (0.66-1.25) mg/dL Estimated GFR (>60) mL/min BUN/Creatinine Ratio (6-22) Glucose (70-100) mg/dL Calcium (8.4-10.2) mg/dL Magnesium (1.6-2.3) mg/dL Total Bilirubin (0.2-1.3) mg/dL AST (17-59) IU/L ALT (<50) IU/L Alkaline Phosphatase (38-126) U/L Total Creatine Kinase (55-170) U/L CK-MB (CK-2) (<2.37) ng/mL CK-MB (CK-2) Rel Index (1.5-5.0) % Troponin I 5.740 H* (0.01-0.034) ng/mL NT-Pro-B Natriuret Pep (<125) pg/mL Total Protein (6.3-8.2) g/dL Albumin (3.5-5.0) g/dL Globulin (1.7-4.1) g/dL Albumin/Globulin Ratio (1.0-2.8) Lipase (23-300) U/L SARS-CoV-2 (PCR) (Negative) 07/12/21 07/12/21 07/12/21 Range/Units 09:05 09:05 16:18 WBC 12.1 H (4.5-11.0) X10^3/uL RBC 4.52 (4.5-5.9) X10^6/uL Hgb 14.2 (13.5-17.5) g/dL Hct 40.2 L (41-53) % MCV 89.0 (80-100) fL MCH 31.4 (26-34) PG MCHC 35.3 (30-36) % RDW 13.8 (11.6-14.8) % Plt Count 206 (150-400) X10^3/uL Neut % (Auto) 65.8 Lymph % (Auto) 22.0 L [place] % (Auto) 6.6 Eos % (Auto) 4.1 H Baso % (Auto) 1.5 Neut # (Auto) 7900 H (3192-7081) /uL Lymph # (Auto) 2700 [place] # (Auto) 800 Eos # (Auto) 500 H (0-450) /uL Baso # (Auto) 200 H Total Counted Seg Neutrophils % (38-70) % Band Neutrophils % (3-7) % Lymphocytes % (Manual) (25-45) % Monocytes % (Manual) (2-11) % Neutrophils # (Manual) (7237-3438) /uL RBC Morphology APTT 39 H (26.4-36.2) SECONDS Sodium 136 L (137-145) mmol/L Potassium 3.9 (3.4-5.1) mmol/L Chloride 105 (98-107) mmol/L Carbon Dioxide 26 (22-32) mmol/L BUN 11 (9-20) mg/dL Creatinine 0.66 (0.66-1.25) mg/dL Estimated GFR > 60 (>60) mL/min BUN/Creatinine Ratio 16.7 (6-22) Glucose 153 H (70-100) mg/dL Calcium 9.1 (8.4-10.2) mg/dL Magnesium (1.6-2.3) mg/dL Total Bilirubin 0.5 (0.2-1.3) mg/dL AST 53 (17-59) IU/L ALT 57 H (<50) IU/L Alkaline Phosphatase 95 (38-126) U/L Total Creatine Kinase (55-170) U/L CK-MB (CK-2) (<2.37) ng/mL CK-MB (CK-2) Rel Index (1.5-5.0) % Troponin I (0.01-0.034) ng/mL NT-Pro-B Natriuret Pep (<125) pg/mL Total Protein 6.4 (6.3-8.2) g/dL Albumin 3.9 (3.5-5.0) g/dL Globulin 2.5 (1.7-4.1) g/dL Albumin/Globulin Ratio 1.6 (1.0-2.8) Lipase (23-300) U/L SARS-CoV-2 (PCR) (Negative) 07/12/21 07/13/21 07/13/21 Range/Units 23:00 05:58 05:58 WBC 8.6 (4.5-11.0) X10^3/uL RBC 4.49 L (4.5-5.9) X10^6/uL Hgb 14.2 (13.5-17.5) g/dL Hct 40.1 L (41-53) % MCV 89.4 (80-100) fL MCH 31.7 (26-34) PG MCHC 35.4 (30-36) % RDW 13.5 (11.6-14.8) % Plt Count 189 (150-400) X10^3/uL Neut % (Auto) 58.1 Lymph % (Auto) 29.2 [place] % (Auto) 6.5 Eos % (Auto) 4.9 H Baso % (Auto) 1.3 Neut # (Auto) 5000 (7823-8116) /uL Lymph # (Auto) 2500 [place] # (Auto) 600 Eos # (Auto) 400 (0-450) /uL Baso # (Auto) 100 Total Counted Seg Neutrophils % (38-70) % Band Neutrophils % (3-7) % Lymphocytes % (Manual) (25-45) % Monocytes % (Manual) (2-11) % Neutrophils # (Manual) (8445-6905) /uL RBC Morphology APTT 52 H D (26.4-36.2) SECONDS Sodium 135 L (137-145) mmol/L Potassium 3.8 (3.4-5.1) mmol/L Chloride 102 (98-107) mmol/L Carbon Dioxide 28 (22-32) mmol/L BUN 12 (9-20) mg/dL Creatinine 0.69 (0.66-1.25) mg/dL Estimated GFR > 60 (>60) mL/min BUN/Creatinine Ratio 17.4 (6-22) Glucose 157 H (70-100) mg/dL Calcium 8.8 (8.4-10.2) mg/dL Magnesium (1.6-2.3) mg/dL Total Bilirubin 0.5 (0.2-1.3) mg/dL AST 44 (17-59) IU/L ALT 60 H (<50) IU/L Alkaline Phosphatase 89 (38-126) U/L Total Creatine Kinase (55-170) U/L CK-MB (CK-2) (<2.37) ng/mL CK-MB (CK-2) Rel Index (1.5-5.0) % Troponin I 1.350 H* (0.01-0.034) ng/mL NT-Pro-B Natriuret Pep (<125) pg/mL Total Protein 6.3 (6.3-8.2) g/dL Albumin 3.6 (3.5-5.0) g/dL Globulin 2.7 (1.7-4.1) g/dL Albumin/Globulin Ratio 1.3 (1.0-2.8) Lipase (23-300) U/L SARS-CoV-2 (PCR) (Negative) 07/13/21 Range/Units 05:58 WBC (4.5-11.0) X10^3/uL RBC (4.5-5.9) X10^6/uL Hgb (13.5-17.5) g/dL Hct (41-53) % MCV (80-100) fL MCH (26-34) PG MCHC (30-36) % RDW (11.6-14.8) % Plt Count (150-400) X10^3/uL Neut % (Auto) Lymph % (Auto) [place] % (Auto) Eos % (Auto) Baso % (Auto) Neut # (Auto) (7632-8717) /uL Lymph # (Auto) [place] # (Auto) Eos # (Auto) (0-450) /uL Baso # (Auto) Total Counted Seg Neutrophils % (38-70) % Band Neutrophils % (3-7) % Lymphocytes % (Manual) (25-45) % Monocytes % (Manual) (2-11) % Neutrophils # (Manual) (3493-8820) /uL RBC Morphology APTT 65 H D (26.4-36.2) SECONDS Sodium (137-145) mmol/L Potassium (3.4-5.1) mmol/L Chloride (98-107) mmol/L Carbon Dioxide (22-32) mmol/L BUN (9-20) mg/dL Creatinine (0.66-1.25) mg/dL Estimated GFR (>60) mL/min BUN/Creatinine Ratio (6-22) Glucose (70-100) mg/dL Calcium (8.4-10.2) mg/dL Magnesium (1.6-2.3) mg/dL Total Bilirubin (0.2-1.3) mg/dL AST (17-59) IU/L ALT (<50) IU/L Alkaline Phosphatase (38-126) U/L Total Creatine Kinase (55-170) U/L CK-MB (CK-2) (<2.37) ng/mL CK-MB (CK-2) Rel Index (1.5-5.0) % Troponin I (0.01-0.034) ng/mL NT-Pro-B Natriuret Pep (<125) pg/mL Total Protein (6.3-8.2) g/dL Albumin (3.5-5.0) g/dL Globulin (1.7-4.1) g/dL Albumin/Globulin Ratio (1.0-2.8) Lipase (23-300) U/L SARS-CoV-2 (PCR) (Negative) Imaging Data Chest x-ray: Radiologist's Impression: XRay Report Signed Patient: Amrit Jo MR#: [id number] : 1965 Acct:[id number] Age/Sex: 56 / M Date of Service: 07/11/21 Loc: ED Accession Number: [id number] ?? Procedure: XR chest 1V Ordering Provider: Jazmin Espinal D.O. PROCEDURE:? XR CHEST 1V ? INDICATIONS:? chest pain ? TECHNIQUE:? One view of the chest was acquired.? ? COMPARISON:? None. ? FINDINGS:? ? Surgical changes and devices:? Lower cervical spine disc replacements. ? Lungs and pleura:? Lungs are clear.? No pleural effusions or pneumothorax.? ? Mediastinum:? Mediastinal contours appear normal.? Heart size is normal.? ? Bones and chest wall:? No suspicious bony lesions.? Overlying soft tissues appear unremarkable.? Old healed right 8th rib fracture ? IMPRESSION:? No acute cardiopulmonary findings ? ? ? Approved by: Randal Guajardo M.D. on 07/11/2021 at 14:54? ECG Data Interpretation: EKG 1. Normal sinus rhythm rate 72 NH interval 184 QRS 96 is Q-wave noted in lead [address] elevation EKG 2. Sinus rhythm rate [address] changes persistent Q-waves no T-wave in version EKG 3. Sinus rhythm rate 67 no changes no signs of ischemia EKG 4. Sinus rhythm rate 77 no changes MDM Narrative Medical decision making narrative: Patient signs and symptoms are certainly concerning especially with his history. Initial troponin is indeterminate repeat troponin is now and positive NSTEMI range. No EKG changes. He is placed on heparin drip and nitroglycerin drip. [facility]: Dr. Cramer, herbicide sprayer [facility] has been updated patient's symptoms test results agrees that patient needs to be transferred to [facility] as soon as possible although they currently do not have any. He will need cardiac catheterization Patient signed out to Dr. Garcia [Chiquita] (Jose) Patient received in sign out from [Kylie]. I have reviewed the clinical course and performed an independent history and physical exam. Resting comfortably and largely pain free, perhaps a small amount of lingering discomfort 07/12/21 (Kylie)-I resumed care at this morning of the patient. He is on a nitroglycerin drip. He had some chest discomfort will they were drawing his blood this morning but pain is resolved. He remains on nitroglycerin drip. Repeat troponin this morning is 5.7. No EKG changes. Unfortunately [facility] has gone on divert they are unable to take STEMI's, patient remains on the list but now looking for other places for patient to go. [place], [facility] (on list), [facility], [facility], [facility] and [facility] have all been contacted. : 1341 Dr. Butler, cardiology, updated on patient's symptoms chest results. He agreed with heparin drip recommends titrating nitro drip off. Recommend continuing aspirin does not recommend clopidogrel at this time. Will accept but highly unlikely to be transferred today or tomorrow [place] 1445 Dr. Harris, [facility], updated on patient's symptoms test results. She is happy to consult recommends admitting hospitalist. 1455 Dr. Dawson, [facility] hospitalist, happily accepts patient to [facility] when bed is available Patient's nitroglycerin drip has been titrated off he has been chest pain-free here. He patient leak waiting. Echocardiogram is negative but today is not jovani w any abnormality. Patient signed back out to Dr. Garcia awaiting for placement. Recommend read contacting patient's own herbicide sprayer Dr. Rubi, for further instructions if not placed soon her. [07/12] (Jose) Patient received in sign out from [Kylie]. I have reviewed the ongoing clinical course. Patient remains pain free. Troponin elevated again. Still no evolving change on EKG 010 - [facility] called back and expects bed in morning between [id number] [place] [address] still has him on list. 07/13 uneventful evening remains on Hep gtt, 24 hrs at 7pm tonight Trop continues to trend down. .872, 5.740, 1.35 this am Remains accepted at [facility], still waiting for beds Final transfer is to [facility]. Transport left at 5pm today. Patient remains stable and pain free on heparin gtt. Did notify [facility] of admit to . <Perico Garcia, - Last Filed: 07/14/21 04:26> Lab Data Labs: Lab Results 05/21/22 05/21/22 05/21/22 Range/Units 16:33 16:33 16:33 WBC 14.6 H (4.5-11.0) X10^3/uL RBC 4.57 (4.5-5.9) X10^6/uL Hgb 14.3 (13.5-17.5) g/dL Hct 40.9 L (41-53) % MCV 89.5 (80-100) fL MCH 31.4 (26-34) PG MCHC 35.1 (30-36) % RDW 13.7 (11.6-14.8) % Plt Count 210 (150-400) X10^3/uL Neut % (Auto) Not Reportable Lymph % (Auto) Not Reportable [place] % (Auto) Not Reportable Eos % (Auto) Not Reportable Baso % (Auto) Not Reportable Neut # (Auto) (4790-6667) /uL Lymph # (Auto) Not Reportable [place] # (Auto) Not Reportable Eos # (Auto) (0-450) /uL Baso # (Auto) Not Reportable Total Counted 100 Seg Neutrophils % 75.0 H (38-70) % Band Neutrophils % 3.0 (3-7) % Lymphocytes % (Manual) 16.0 L (25-45) % Monocytes % (Manual) 6.0 (2-11) % Neutrophils # (Manual) 37882 H (0169-5334) /uL RBC Morphology Normal morphology APTT (26.4-36.2) SECONDS Sodium 137 (137-145) mmol/L Potassium 3.9 (3.4-5.1) mmol/L Chloride 102 (98-107) mmol/L Carbon Dioxide 25 (22-32) mmol/L BUN 14 (9-20) mg/dL Creatinine 0.76 (0.66-1.25) mg/dL Estimated GFR > 60 (>60) mL/min BUN/Creatinine Ratio 18.4 (6-22) Glucose 174 H (70-100) mg/dL Calcium 9.4 (8.4-10.2) mg/dL Magnesium 1.6 (1.6-2.3) mg/dL Total Bilirubin 0.5 (0.2-1.3) mg/dL AST 41 (17-59) IU/L ALT 60 H (<50) IU/L Alkaline Phosphatase 123 (38-126) U/L Total Creatine Kinase 107 (55-170) U/L CK-MB (CK-2) 1.29 (<2.37) ng/mL CK-MB (CK-2) Rel Index 1.2 L (1.5-5.0) % Troponin I 0.062 H (0.01-0.034) ng/mL NT-Pro-B Natriuret Pep 20 (<125) pg/mL Total Protein 6.6 (6.3-8.2) g/dL Albumin 3.9 (3.5-5.0) g/dL Globulin 2.7 (1.7-4.1) g/dL Albumin/Globulin Ratio 1.4 (1.0-2.8) Lipase 140 (23-300) U/L SARS-CoV-2 (PCR) (Negative) 07/11/21 07/11/21 07/11/21 Range/Units 16:33 18:31 20:17 WBC (4.5-11.0) X10^3/uL RBC (4.5-5.9) X10^6/uL Hgb (13.5-17.5) g/dL Hct (41-53) % MCV (80-100) fL MCH (26-34) PG MCHC (30-36) % RDW (11.6-14.8) % Plt Count (150-400) X10^3/uL Neut % (Auto) Lymph % (Auto) [place] % (Auto) Eos % (Auto) Baso % (Auto) Neut # (Auto) (2617-4523) /uL Lymph # (Auto) [place] # (Auto) Eos # (Auto) (0-450) /uL Baso # (Auto) Total Counted Seg Neutrophils % (38-70) % Band Neutrophils % (3-7) % Lymphocytes % (Manual) (25-45) % Monocytes % (Manual) (2-11) % Neutrophils # (Manual) (1055-6532) /uL RBC Morphology APTT 28 (26.4-36.2) SECONDS Sodium (137-145) mmol/L Potassium (3.4-5.1) mmol/L Chloride (98-107) mmol/L Carbon Dioxide (22-32) mmol/L BUN (9-20) mg/dL Creatinine (0.66-1.25) mg/dL Estimated GFR (>60) mL/min BUN/Creatinine Ratio (6-22) Glucose (70-100) mg/dL Calcium (8.4-10.2) mg/dL Magnesium (1.6-2.3) mg/dL Total Bilirubin (0.2-1.3) mg/dL AST (17-59) IU/L ALT (<50) IU/L Alkaline Phosphatase (38-126) U/L Total Creatine Kinase (55-170) U/L CK-MB (CK-2) (<2.37) ng/mL CK-MB (CK-2) Rel Index (1.5-5.0) % Troponin I 0.872 H* (0.01-0.034) ng/mL NT-Pro-B Natriuret Pep (<125) pg/mL Total Protein (6.3-8.2) g/dL Albumin (3.5-5.0) g/dL Globulin (1.7-4.1) g/dL Albumin/Globulin Ratio (1.0-2.8) Lipase (23-300) U/L SARS-CoV-2 (PCR) Negative (Negative) 07/12/21 07/12/21 07/12/21 Range/Units 02:20 08:15 09:05 WBC (4.5-11.0) X10^3/uL RBC (4.5-5.9) X10^6/uL Hgb (13.5-17.5) g/dL Hct (41-53) % MCV (80-100) fL MCH (26-34) PG MCHC (30-36) % RDW (11.6-14.8) % Plt Count (150-400) X10^3/uL Neut % (Auto) Lymph % (Auto) [place] % (Auto) Eos % (Auto) Baso % (Auto) Neut # (Auto) (0526-8468) /uL Lymph # (Auto) [place] # (Auto) Eos # (Auto) (0-450) /uL Baso # (Auto) Total Counted Seg Neutrophils % (38-70) % Band Neutrophils % (3-7) % Lymphocytes % (Manual) (25-45) % Monocytes % (Manual) (2-11) % Neutrophils # (Manual) (8571-1265) /uL RBC Morphology APTT 48 H D 44 H (26.4-36.2) SECONDS Sodium (137-145) mmol/L Potassium (3.4-5.1) mmol/L Chloride (98-107) mmol/L Carbon Dioxide (22-32) mmol/L BUN (9-20) mg/dL Creatinine (0.66-1.25) mg/dL Estimated GFR (>60) mL/min BUN/Creatinine Ratio (6-22) Glucose (70-100) mg/dL Calcium (8.4-10.2) mg/dL Magnesium (1.6-2.3) mg/dL Total Bilirubin (0.2-1.3) mg/dL AST (17-59) IU/L ALT (<50) IU/L Alkaline Phosphatase (38-126) U/L Total Creatine Kinase (55-170) U/L CK-MB (CK-2) (<2.37) ng/mL CK-MB (CK-2) Rel Index (1.5-5.0) % Troponin I 5.740 H* (0.01-0.034) ng/mL NT-Pro-B Natriuret Pep (<125) pg/mL Total Protein (6.3-8.2) g/dL Albumin (3.5-5.0) g/dL Globulin (1.7-4.1) g/dL Albumin/Globulin Ratio (1.0-2.8) Lipase (23-300) U/L SARS-CoV-2 (PCR) (Negative) 07/12/21 07/12/21 07/12/21 Range/Units 09:05 09:05 16:18 WBC 12.1 H (4.5-11.0) X10^3/uL RBC 4.52 (4.5-5.9) X10^6/uL Hgb 14.2 (13.5-17.5) g/dL Hct 40.2 L (41-53) % MCV 89.0 (80-100) fL MCH 31.4 (26-34) PG MCHC 35.3 (30-36) % RDW 13.8 (11.6-14.8) % Plt Count 206 (150-400) X10^3/uL Neut % (Auto) 65.8 Lymph % (Auto) 22.0 L [place] % (Auto) 6.6 Eos % (Auto) 4.1 H Baso % (Auto) 1.5 Neut # (Auto) 7900 H (6601-3720) /uL Lymph # (Auto) 2700 [place] # (Auto) 800 Eos # (Auto) 500 H (0-450) /uL Baso # (Auto) 200 H Total Counted Seg Neutrophils % (38-70) % Band Neutrophils % (3-7) % Lymphocytes % (Manual) (25-45) % Monocytes % (Manual) (2-11) % Neutrophils # (Manual) (9965-7784) /uL RBC Morphology APTT 39 H (26.4-36.2) SECONDS Sodium 136 L (137-145) mmol/L Potassium 3.9 (3.4-5.1) mmol/L Chloride 105 (98-107) mmol/L Carbon Dioxide 26 (22-32) mmol/L BUN 11 (9-20) mg/dL Creatinine 0.66 (0.66-1.25) mg/dL Estimated GFR > 60 (>60) mL/min BUN/Creatinine Ratio 16.7 (6-22) Glucose 153 H (70-100) mg/dL Calcium 9.1 (8.4-10.2) mg/dL Magnesium (1.6-2.3) mg/dL Total Bilirubin 0.5 (0.2-1.3) mg/dL AST 53 (17-59) IU/L ALT 57 H (<50) IU/L Alkaline Phosphatase 95 (38-126) U/L Total Creatine Kinase (55-170) U/L CK-MB (CK-2) (<2.37) ng/mL CK-MB (CK-2) Rel Index (1.5-5.0) % Troponin I (0.01-0.034) ng/mL NT-Pro-B Natriuret Pep (<125) pg/mL Total Protein 6.4 (6.3-8.2) g/dL Albumin 3.9 (3.5-5.0) g/dL Globulin 2.5 (1.7-4.1) g/dL Albumin/Globulin Ratio 1.6 (1.0-2.8) Lipase (23-300) U/L SARS-CoV-2 (PCR) (Negative) 07/12/21 07/13/21 07/13/21 Range/Units 23:00 05:58 05:58 WBC 8.6 (4.5-11.0) X10^3/uL RBC 4.49 L (4.5-5.9) X10^6/uL Hgb 14.2 (13.5-17.5) g/dL Hct 40.1 L (41-53) % MCV 89.4 (80-100) fL MCH 31.7 (26-34) PG MCHC 35.4 (30-36) % RDW 13.5 (11.6-14.8) % Plt Count 189 (150-400) X10^3/uL Neut % (Auto) 58.1 Lymph % (Auto) 29.2 [place] % (Auto) 6.5 Eos % (Auto) 4.9 H Baso % (Auto) 1.3 Neut # (Auto) 5000 (0477-1624) /uL Lymph # (Auto) 2500 [place] # (Auto) 600 Eos # (Auto) 400 (0-450) /uL Baso # (Auto) 100 Total Counted Seg Neutrophils % (38-70) % Band Neutrophils % (3-7) % Lymphocytes % (Manual) (25-45) % Monocytes % (Manual) (2-11) % Neutrophils # (Manual) (7112-6445) /uL RBC Morphology APTT 52 H D (26.4-36.2) SECONDS Sodium 135 L (137-145) mmol/L Potassium 3.8 (3.4-5.1) mmol/L Chloride 102 (98-107) mmol/L Carbon Dioxide 28 (22-32) mmol/L BUN 12 (9-20) mg/dL Creatinine 0.69 (0.66-1.25) mg/dL Estimated GFR > 60 (>60) mL/min BUN/Creatinine Ratio 17.4 (6-22) Glucose 157 H (70-100) mg/dL Calcium 8.8 (8.4-10.2) mg/dL Magnesium (1.6-2.3) mg/dL Total Bilirubin 0.5 (0.2-1.3) mg/dL AST 44 (17-59) IU/L ALT 60 H (<50) IU/L Alkaline Phosphatase 89 (38-126) U/L Total Creatine Kinase (55-170) U/L CK-MB (CK-2) (<2.37) ng/mL CK-MB (CK-2) Rel Index (1.5-5.0) % Troponin I 1.350 H* (0.01-0.034) ng/mL NT-Pro-B Natriuret Pep (<125) pg/mL Total Protein 6.3 (6.3-8.2) g/dL Albumin 3.6 (3.5-5.0) g/dL Globulin 2.7 (1.7-4.1) g/dL Albumin/Globulin Ratio 1.3 (1.0-2.8) Lipase (23-300) U/L SARS-CoV-2 (PCR) (Negative) 07/13/21 Range/Units 05:58 WBC (4.5-11.0) X10^3/uL RBC (4.5-5.9) X10^6/uL Hgb (13.5-17.5) g/dL Hct (41-53) % MCV (80-100) fL MCH (26-34) PG MCHC (30-36) % RDW (11.6-14.8) % Plt Count (150-400) X10^3/uL Neut % (Auto) Lymph % (Auto) [place] % (Auto) Eos % (Auto) Baso % (Auto) Neut # (Auto) (6208-9782) /uL Lymph # (Auto) [place] # (Auto) Eos # (Auto) (0-450) /uL Baso # (Auto) Total Counted Seg Neutrophils % (38-70) % Band Neutrophils % (3-7) % Lymphocytes % (Manual) (25-45) % Monocytes % (Manual) (2-11) % Neutrophils # (Manual) (3037-2675) /uL RBC Morphology APTT 65 H D (26.4-36.2) SECONDS Sodium (137-145) mmol/L Potassium (3.4-5.1) mmol/L Chloride (98-107) mmol/L Carbon Dioxide (22-32) mmol/L BUN (9-20) mg/dL Creatinine (0.66-1.25) mg/dL Estimated GFR (>60) mL/min BUN/Creatinine Ratio (6-22) Glucose (70-100) mg/dL Calcium (8.4-10.2) mg/dL Magnesium (1.6-2.3) mg/dL Total Bilirubin (0.2-1.3) mg/dL AST (17-59) IU/L ALT (<50) IU/L Alkaline Phosphatase (38-126) U/L Total Creatine Kinase (55-170) U/L CK-MB (CK-2) (<2.37) ng/mL CK-MB (CK-2) Rel Index (1.5-5.0) % Troponin I (0.01-0.034) ng/mL NT-Pro-B Natriuret Pep (<125) pg/mL Total Protein (6.3-8.2) g/dL Albumin (3.5-5.0) g/dL Globulin (1.7-4.1) g/dL Albumin/Globulin Ratio (1.0-2.8) Lipase (23-300) U/L SARS-CoV-2 (PCR) (Negative) MDM Narrative Medical decision making narrative: Patient signs and symptoms are certainly concerning especially with his history. Initial troponin is indeterminate repeat troponin is now and positive NSTEMI range. No EKG changes. He is placed on heparin drip and nitroglycerin drip. [facility]: Dr. Cramer, herbicide sprayer [facility] has been updated patient's symptoms test results agrees that patient needs to be transferred to [facility] as soon as possible although they currently do not have any. He will need cardiac catheterization Patient signed out to Dr. Garcia [[id number]] (Jose) Patient received in sign out from [Kylie]. I have reviewed the clinical course and performed an independent history and physical exam. Resting comfortably and largely pain free, perhaps a small amount of lingering discomfort 07/12/21 (Kylie)-I resumed care at this morning of the patient. He is on a nitroglycerin drip. He had some chest discomfort will they were drawing his blood this morning but pain is resolved. He remains on nitroglycerin drip. Repeat troponin this morning is 5.7. No EKG changes. Unfortunately [facility] has gone on divert they are unable to take STEMI's, patient remains on the list but now looking for other places for patient to go. [facility] (on list), [facility], [facility], [facility] and [facility] have all been contacted. : 1341 Dr. Butler, cardiology, updated on patient's symptoms chest results. He agreed with heparin drip recommends titrating nitro drip off. Recommend continuing aspirin does not recall her clopidogrel at this time. Will accept but highly unlikely to be transferred today or tomorrow [place] 1445 Dr. Harris, [facility], updated on patient's symptoms test results. She is happy to consult recommends admitting hospitalist. 1455 Dr. Dawson, [facility] hospitalist, happily accepts patient to [facility] when bed is available Patient's nitroglycerin drip has been titrated off he has been chest pain-free here. He patient leak waiting. Echocardiogram is negative but today is not show any abnormality. Patient signed back out to Dr. Garcia awaiting for placement. Recommend read contacting patient's own herbicide sprayer Dr. Rubi, for further instructions if not placed soon her. [07/12] (Jose) Patient received in sign out from [Kylie]. I have reviewed the ongoing clinical course. Patient remains pain free. Troponin elevated again. Still no evolving change on EKG 0100 - [facility] called back and expects bed in morning between [id number] 0130 - [place] still has him on list. <Elsa Patton MD - Last Filed: 07/13/21 18:18> Lab Data Labs: Lab Results 07/11/21 07/11/21 07/11/21 Range/Units 16:33 16:33 16:33 WBC 14.6 H (4.5-11.0) X10^3/uL RBC 4.57 (4.5-5.9) X10^6/uL Hgb 14.3 (13.5-17.5) g/dL Hct 40.9 L (41-53) % MCV 89.5 (80-100) fL MCH 31.4 (26-34) PG MCHC 35.1 (30-36) % RDW 13.7 (11.6-14.8) % Plt Count 210 (150-400) X10^3/uL Neut % (Auto) Not Reportable Lymph % (Auto) Not Reportable [place] % (Auto) Not Reportable Eos % (Auto) Not Reportable Baso % (Auto) Not Reportable Neut # (Auto) (3123-5247) /uL Lymph # (Auto) Not Reportable [place] # (Auto) Not Reportable Eos # (Auto) (0-450) /uL Baso # (Auto) Not Reportable Total Counted 100 Seg Neutrophils % 75.0 H (38-70) % Band Neutrophils % 3.0 (3-7) % Lymphocytes % (Manual) 16.0 L (25-45) % Monocytes % (Manual) 6.0 (2-11) % Neutrophils # (Manual) 13042 H (7585-5378) /uL RBC Morphology Normal morphology APTT (26.4-36.2) SECONDS Sodium 137 (137-145) mmol/L Potassium 3.9 (3.4-5.1) mmol/L Chloride 102 (98-107) mmol/L Carbon Dioxide 25 (22-32) mmol/L BUN 14 (9-20) mg/dL Creatinine 0.76 (0.66-1.25) mg/dL Estimated GFR > 60 (>60) mL/min BUN/Creatinine Ratio 18.4 (6-22) Glucose 174 H (70-100) mg/dL Calcium 9.4 (8.4-10.2) mg/dL Magnesium 1.6 (1.6-2.3) mg/dL Total Bilirubin 0.5 (0.2-1.3) mg/dL AST 41 (17-59) IU/L ALT 60 H (<50) IU/L Alkaline Phosphatase 123 (38-126) U/L Total Creatine Kinase 107 (55-170) U/L CK-MB (CK-2) 1.29 (<2.37) ng/mL CK-MB (CK-2) Rel Index 1.2 L (1.5-5.0) % Troponin I 0.062 H (0.01-0.034) ng/mL NT-Pro-B Natriuret Pep 20 (<125) pg/mL Total Protein 6.6 (6.3-8.2) g/dL Albumin 3.9 (3.5-5.0) g/dL Globulin 2.7 (1.7-4.1) g/dL Albumin/Globulin Ratio 1.4 (1.0-2.8) Lipase 140 (23-300) U/L SARS-CoV-2 (PCR) (Negative) 07/11/21 07/11/21 07/11/21 Range/Units 16:33 18:31 20:17 WBC (4.5-11.0) X10^3/uL RBC (4.5-5.9) X10^6/uL Hgb (13.5-17.5) g/dL Hct (41-53) % MCV (80-100) fL MCH (26-34) PG MCHC (30-36) % RDW (11.6-14.8) % Plt Count (150-400) X10^3/uL Neut % (Auto) Lymph % (Auto) [place] % (Auto) Eos % (Auto) Baso % (Auto) Neut # (Auto) (0621-4415) /uL Lymph # (Auto) [place] # (Auto) Eos # (Auto) (0-450) /uL Baso # (Auto) Total Counted Seg Neutrophils % (38-70) % Band Neutrophils % (3-7) % Lymphocytes % (Manual) (25-45) % Monocytes % (Manual) (2-11) % Neutrophils # (Manual) (5160-5175) /uL RBC Morphology APTT 28 (26.4-36.2) SECONDS Sodium (137-145) mmol/L Potassium (3.4-5.1) mmol/L Chloride (98-107) mmol/L Carbon Dioxide (22-32) mmol/L BUN (9-20) mg/dL Creatinine (0.66-1.25) mg/dL Estimated GFR (>60) mL/min BUN/Creatinine Ratio (6-22) Glucose (70-100) mg/dL Calcium (8.4-10.2) mg/dL Magnesium (1.6-2.3) mg/dL Total Bilirubin (0.2-1.3) mg/dL AST (17-59) IU/L ALT (<50) IU/L Alkaline Phosphatase (38-126) U/L Total Creatine Kinase (55-170) U/L CK-MB (CK-2) (<2.37) ng/mL CK-MB (CK-2) Rel Index (1.5-5.0) % Troponin I 0.872 H* (0.01-0.034) ng/mL NT-Pro-B Natriuret Pep (<125) pg/mL Total Protein (6.3-8.2) g/dL Albumin (3.5-5.0) g/dL Globulin (1.7-4.1) g/dL Albumin/Globulin Ratio (1.0-2.8) Lipase (23-300) U/L SARS-CoV-2 (PCR) Negative (Negative) 07/12/21 07/12/21 07/12/21 Range/Units 02:20 08:15 09:05 WBC (4.5-11.0) X10^3/uL RBC (4.5-5.9) X10^6/uL Hgb (13.5-17.5) g/dL Hct (41-53) % MCV (80-100) fL MCH (26-34) PG MCHC (30-36) % RDW (11.6-14.8) % Plt Count (150-400) X10^3/uL Neut % (Auto) Lymph % (Auto) [place] % (Auto) Eos % (Auto) Baso % (Auto) Neut # (Auto) (5407-0687) /uL Lymph # (Auto) [place] # (Auto) Eos # (Auto) (0-450) /uL Baso # (Auto) Total Counted Seg Neutrophils % (38-70) % Band Neutrophils % (3-7) % Lymphocytes % (Manual) (25-45) % Monocytes % (Manual) (2-11) % Neutrophils # (Manual) (0112-0495) /uL RBC Morphology APTT 48 H D 44 H (26.4-36.2) SECONDS Sodium (137-145) mmol/L Potassium (3.4-5.1) mmol/L Chloride (98-107) mmol/L Carbon Dioxide (22-32) mmol/L BUN (9-20) mg/dL Creatinine (0.66-1.25) mg/dL Estimated GFR (>60) mL/min BUN/Creatinine Ratio (6-22) Glucose (70-100) mg/dL Calcium (8.4-10.2) mg/dL Magnesium (1.6-2.3) mg/dL Total Bilirubin (0.2-1.3) mg/dL AST (17-59) IU/L ALT (<50) IU/L Alkaline Phosphatase (38-126) U/L Total Creatine Kinase (55-170) U/L CK-MB (CK-2) (<2.37) ng/mL CK-MB (CK-2) Rel Index (1.5-5.0) % Troponin I 5.740 H* (0.01-0.034) ng/mL NT-Pro-B Natriuret Pep (<125) pg/mL Total Protein (6.3-8.2) g/dL Albumin (3.5-5.0) g/dL Globulin (1.7-4.1) g/dL Albumin/Globulin Ratio (1.0-2.8) Lipase (23-300) U/L SARS-CoV-2 (PCR) (Negative) 07/12/21 07/12/21 07/12/21 Range/Units 09:05 09:05 16:18 WBC 12.1 H (4.5-11.0) X10^3/uL RBC 4.52 (4.5-5.9) X10^6/uL Hgb 14.2 (13.5-17.5) g/dL Hct 40.2 L (41-53) % MCV 89.0 (80-100) fL MCH 31.4 (26-34) PG MCHC 35.3 (30-36) % RDW 13.8 (11.6-14.8) % Plt Count 206 (150-400) X10^3/uL Neut % (Auto) 65.8 Lymph % (Auto) 22.0 L [place] % (Auto) 6.6 Eos % (Auto) 4.1 H Baso % (Auto) 1.5 Neut # (Auto) 7900 H (1683-7979) /uL Lymph # (Auto) 2700 [place] # (Auto) 800 Eos # (Auto) 500 H (0-450) /uL Baso # (Auto) 200 H Total Counted Seg Neutrophils % (38-70) % Band Neutrophils % (3-7) % Lymphocytes % (Manual) (25-45) % Monocytes % (Manual) (2-11) % Neutrophils # (Manual) (6595-2893) /uL RBC Morphology APTT 39 H (26.4-36.2) SECONDS Sodium 136 L (137-145) mmol/L Potassium 3.9 (3.4-5.1) mmol/L Chloride 105 (98-107) mmol/L Carbon Dioxide 26 (22-32) mmol/L BUN 11 (9-20) mg/dL Creatinine 0.66 (0.66-1.25) mg/dL Estimated GFR > 60 (>60) mL/min BUN/Creatinine Ratio 16.7 (6-22) Glucose 153 H (70-100) mg/dL Calcium 9.1 (8.4-10.2) mg/dL Magnesium (1.6-2.3) mg/dL Total Bilirubin 0.5 (0.2-1.3) mg/dL AST 53 (17-59) IU/L ALT 57 H (<50) IU/L Alkaline Phosphatase 95 (38-126) U/L Total Creatine Kinase (55-170) U/L CK-MB (CK-2) (<2.37) ng/mL CK-MB (CK-2) Rel Index (1.5-5.0) % Troponin I (0.01-0.034) ng/mL NT-Pro-B Natriuret Pep (<125) pg/mL Total Protein 6.4 (6.3-8.2) g/dL Albumin 3.9 (3.5-5.0) g/dL Globulin 2.5 (1.7-4.1) g/dL Albumin/Globulin Ratio 1.6 (1.0-2.8) Lipase (23-300) U/L SARS-CoV-2 (PCR) (Negative) 07/12/21 07/13/21 07/13/21 Range/Units 23:00 05:58 05:58 WBC 8.6 (4.5-11.0) X10^3/uL RBC 4.49 L (4.5-5.9) X10^6/uL Hgb 14.2 (13.5-17.5) g/dL Hct 40.1 L (41-53) % MCV 89.4 (80-100) fL MCH 31.7 (26-34) PG MCHC 35.4 (30-36) % RDW 13.5 (11.6-14.8) % Plt Count 189 (150-400) X10^3/uL Neut % (Auto) 58.1 Lymph % (Auto) 29.2 [place] % (Auto) 6.5 Eos % (Auto) 4.9 H Baso % (Auto) 1.3 Neut # (Auto) 5000 (7165-1805) /uL Lymph # (Auto) 2500 [place] # (Auto) 600 Eos # (Auto) 400 (0-450) /uL Baso # (Auto) 100 Total Counted Seg Neutrophils % (38-70) % Band Neutrophils % (3-7) % Lymphocytes % (Manual) (25-45) % Monocytes % (Manual) (2-11) % Neutrophils # (Manual) (5715-6637) /uL RBC Morphology APTT 52 H D (26.4-36.2) SECONDS Sodium 135 L (137-145) mmol/L Potassium 3.8 (3.4-5.1) mmol/L Chloride 102 (98-107) mmol/L Carbon Dioxide 28 (22-32) mmol/L BUN 12 (9-20) mg/dL Creatinine 0.69 (0.66-1.25) mg/dL Estimated GFR > 60 (>60) mL/min BUN/Creatinine Ratio 17.4 (6-22) Glucose 157 H (70-100) mg/dL Calcium 8.8 (8.4-10.2) mg/dL Magnesium (1.6-2.3) mg/dL Total Bilirubin 0.5 (0.2-1.3) mg/dL AST 44 (17-59) IU/L ALT 60 H (<50) IU/L Alkaline Phosphatase 89 (38-126) U/L Total Creatine Kinase (55-170) U/L CK-MB (CK-2) (<2.37) ng/mL CK-MB (CK-2) Rel Index (1.5-5.0) % Troponin I 1.350 H* (0.01-0.034) ng/mL NT-Pro-B Natriuret Pep (<125) pg/mL Total Protein 6.3 (6.3-8.2) g/dL Albumin 3.6 (3.5-5.0) g/dL Globulin 2.7 (1.7-4.1) g/dL Albumin/Globulin Ratio 1.3 (1.0-2.8) Lipase (23-300) U/L SARS-CoV-2 (PCR) (Negative) 07/13/21 Range/Units 05:58 WBC (4.5-11.0) X10^3/uL RBC (4.5-5.9) X10^6/uL Hgb (13.5-17.5) g/dL Hct (41-53) % MCV (80-100) fL MCH (26-34) PG MCHC (30-36) % RDW (11.6-14.8) % Plt Count (150-400) X10^3/uL Neut % (Auto) Lymph % (Auto) [place] % (Auto) Eos % (Auto) Baso % (Auto) Neut # (Auto) (8059-7028) /uL Lymph # (Auto) [place] # (Auto) Eos # (Auto) (0-450) /uL Baso # (Auto) Total Counted Seg Neutrophils % (38-70) % Band Neutrophils % (3-7) % Lymphocytes % (Manual) (25-45) % Monocytes % (Manual) (2-11) % Neutrophils # (Manual) (4526-3337) /uL RBC Morphology APTT 65 H D (26.4-36.2) SECONDS Sodium (137-145) mmol/L Potassium (3.4-5.1) mmol/L Chloride (98-107) mmol/L Carbon Dioxide (22-32) mmol/L BUN (9-20) mg/dL Creatinine (0.66-1.25) mg/dL Estimated GFR (>60) mL/min BUN/Creatinine Ratio (6-22) Glucose (70-100) mg/dL Calcium (8.4-10.2) mg/dL Magnesium (1.6-2.3) mg/dL Total Bilirubin (0.2-1.3) mg/dL AST (17-59) IU/L ALT (<50) IU/L Alkaline Phosphatase (38-126) U/L Total Creatine Kinase (55-170) U/L CK-MB (CK-2) (<2.37) ng/mL CK-MB (CK-2) Rel Index (1.5-5.0) % Troponin I (0.01-0.034) ng/mL NT-Pro-B Natriuret Pep (<125) pg/mL Total Protein (6.3-8.2) g/dL Albumin (3.5-5.0) g/dL Globulin (1.7-4.1) g/dL Albumin/Globulin Ratio (1.0-2.8) Lipase (23-300) U/L SARS-CoV-2 (PCR) (Negative) MDM Narrative Medical decision making narrative: Patient signs and symptoms are certainly concerning especially with his history. Initial troponin is indeterminate repeat troponin is now and positive NSTEMI range. No EKG changes. He is placed on heparin drip and nitroglycerin drip. [facility]: Dr. Cramer, herbicide sprayer [facility] has been updated patient's symptoms test results agrees that patient needs to be transferred to [facility] as soon as possible although they currently do not have any. He will need cardiac catheterization Patient signed out to Dr. Garcia [[id number]] (Jose) Patient received in sign out from [Kylie]. I have reviewed the clinical course and performed an independent history and physical exam. Resting comfortably and largely pain free, perhaps a small amount of lingering discomfort 07/12/21 (Kylie)-I resumed care at this morning of the patient. He is on a nitroglycerin drip. He had some chest discomfort will they were drawing his blood this morning but pain is resolved. He remains on nitroglycerin drip. Repeat troponin this morning is 5.7. No EKG changes. Unfortunately [facility] has gone on divert they are unable to take STEMI's, patient remains on the list but now looking for other places for patient to go. [facility] (on list), [facility], [facility], [facility] and [facility] have all been contacted. : [id number] Dr. Butler, cardiology, updated on patient's symptoms chest results. He agreed with heparin drip recommends titrating nitro drip off. Recommend continuing aspirin does not recall her clopidogrel at this time. Will accept but highly unlikely to be transferred today or tomorrow [place] [id number] Dr. Harris, [facility], updated on patient's symptoms test results. She is happy to consult recommends admitting hospitalist. [id number] Dr. Dawson, [facility] hospitalist, happily accepts patient to [facility] when bed is available Patient's nitroglycerin drip has been titrated off he has been chest pain-free here. He patient leak waiting. Echocardiogram is negative but today is not show any abnormality. Patient signed back out to Dr. Garcia awaiting for placement. Recommend read contacting patient's own herbicide sprayer Dr. Rubi, for further instructions if not placed soon her. [1845 07/12] (Jose) Patient received in sign out from [Kylie]. I have reviewed the ongoing clinical course. Patient remains pain free. Troponin elevated again. Still no evolving change on EKG 0100 - [facility] called back and expects bed in morning between [id number] 0130 - [place] still has him on list. 07/13 uneventful evening remains on Hep gtt, 24 hrs at 7pm tonight Trop continues to trend down. .872, 5.740, 1.35 this am Remains accepted at [facility], still waiting for beds Final transfer is to [facility]. Transport left at 5pm today. Patient remains stable and pain free on heparin gtt. Did notify [facility] of admit to . Discharge Plan Departure Patient Disposition: [facility] Clinical Impression: Acute non-ST elevation myocardial infarction (NSTEMI) Prescriptions: No Action telmisartan [Micardis] 40 MG tablet 40 mg PO QDAY Qty: 0 0RF albuterol sulfate [Ventolin HFA] 90 MCG/PUFF HFA aerosol inhaler 1 puff INH PRN PRN (Reason: Shortness Of Breath Or Wheezing) Qty: 0 0RF Trulicity 1.5 mg/0.5 mL pen injector 1.5 mg SUBCUT WEEKLY 0RF aspirin 81 mg tablet,delayed release (DR/EC) 81 mg PO DAILY 0RF metoprolol succinate 25 mg tablet extended release 24 hr 25 mg PO DAILY 0RF metformin 500 mg tablet 500 mg PO BID 0RF amoxicillin 500 mg capsule 500 mg PO Q8H 0RF oxycodone 5 MG tablet 5 - 10 mg PO Q3HP PRN (Reason: Pain (Scale Score 1-3)) 0RF Referrals: Saadia Roland MD [Primary Care Provider] -
[2021-07-11] MEDS: ASPIRIN 81 MG CHEW TAB 324 MG PO (15:17)
[2021-07-11] MEDS: NITROGLYCERIN 0.4 MG SL TAB SL ×3 (15:17→15:53)
--- NOTE | 2021-07-11 15:20 | PC.NURSE ---
Addendum entered by Sloan Shelton 07/11/21 15:21: chest pain 2/10 before nitro Original Note: chest pain 2 without nitro
--- NOTE | 2021-07-11 16:09 | PC.NURSE ---
Patient is a difficult IV stick, x2 RN attempts. Blood obtained but per lab hemolyzed. Lab reports unsuccessful attempt.
[2021-07-11 16:42] LABS: Hematocrit 40.9 % (41-53); Hemoglobin 14.3 g/dL (13.5-17.5); Mean Corpuscular HGB Conc 35.1 % (30-36); Mean Corpuscular Hemoglobin 31.4 PG (26-34); Mean Corpuscular Volume 89.5 fL (80-100); Platelet Count 210 X10^3/uL (150-400); Red Blood Cell Count 4.57 X10^6/uL (4.5-5.9); Red Cell Distribution Width 13.7 % (11.6-14.8); White Blood Cell Count 14.6 X10^3/uL (4.5-11.0)
[2021-07-11 16:43] LABS: Add Manual Diff / Slide Review YES
[2021-07-11 16:53] LABS: Alanine Aminotransferase 60 IU/L (<50); Albumin 3.9 g/dL (3.5-5.0); Albumin Globulin Ratio 1.4 (1.0-2.8); Alkaline Phosphatase 123 U/L (38-126); Aspartate Aminotransferase 41 IU/L (17-59); BUN Creatinine Ratio 18.4 (6-22); Bilirubin Total 0.5 mg/dL (0.2-1.3); Blood Urea Nitrogen 14 mg/dL (9-20); Calcium 9.4 mg/dL (8.4-10.2); Carbon Dioxide 25 mmol/L (22-32); Chloride 102 mmol/L (98-107); Creatine Kinase 107 U/L (55-170); Estimated Glomerular Filt Rate > 60 mL/min (>60); Globulin 2.7 g/dL (1.7-4.1); Glucose 174 mg/dL (70-100); HEMOLYSIS < 15 (0-50); Lipase 140 U/L (23-300); Magnesium 1.6 mg/dL (1.6-2.3); Potassium 3.9 mmol/L (3.4-5.1); Sodium 137 mmol/L (137-145); Total Protein 6.6 g/dL (6.3-8.2)
[2021-07-11 17:01] LABS: Neutrophils Absolute Manual 11388 /uL (3000-5900); Total Cells Counted 100
[2021-07-11 17:02] LABS: RBC Morphology Normal Morphology
[2021-07-11 17:04] LABS: Troponin I 0.062 ng/mL (0.01-0.034)
[2021-07-11 17:07] LABS: NT-proBNP (BNP-Adult 18+) 20 pg/mL (<125)
[2021-07-11 17:08] LABS: CKMB % Relative Index 1.2 % (1.5-5.0); Creatine Kinase MB 1.29 ng/mL (<2.37)
[2021-07-11 19:26] LABS: Troponin I 0.872 ng/mL (0.01-0.034)
[2021-07-11] MEDS: HEPARIN 5,000 UNIT/ML VIAL 5000 UNIT IV (19:51)
[2021-07-11 19:55] LABS: PTT Partial Thromboplastin Tim 28 SECONDS (26.4-36.2)
[2021-07-11] MEDS: HEPARIN DRIP 25,000 UNIT/500 ML IV.SOLN 20 UNIT IV (19:55)
[2021-07-11] MEDS: NITROGLYCERIN 50 MG/250 ML INFUS..BTL IV (20:07)
[2021-07-11 20:40] LABS: COVID19 -Nasal RAPID Negative (Negative)
[2021-07-11] MEDS: ATORVASTATIN 20 MG TABLET 80 MG PO (20:43)
[2021-07-11] MEDS: AMOXICILLIN 250 MG CAPSULE 500 MG PO (20:44)
[2021-07-12] VITALS (54 sets, daily range): BP systolic 113–169; BP diastolic 64–97; PULSE 68–90; RESP 11–60; O2SAT 91–96
[2021-07-12 02:36] LABS: PTT Partial Thromboplastin Tim 48 SECONDS (26.4-36.2)
--- NOTE | 2021-07-12 03:00 | PC.NURSE ---
Heparin drip titrated per protocol, PTT 48; heparin drip increased by 50 units/hr. Pt is resting in bed without complaint.
--- NOTE | 2021-07-12 08:52 | DI.ECHO.S_ITS ---
[place] +---------+ [facility] +---------+ : : [address] : : : : [id number] : : : : Phone: [phone]+ Echocardiogram Report + + :Name: RUPINDER WALKER Study Date: 07/12/2021 Height: 70 in : :[facility] ReadingLocation: Weight: 250 lb : : Gender: Male BSA: 2.3 m2 : :: 1965 Age: 56 yrs BP: 128/77 mmHg: :Reason For Study: NSTEMI : :Ordering Physician: JANELL, : :MATEO Performed By: Ender Bloom : :Referring: MATEO MACIEL : + + Interpretation Summary Normal echo EF is 55-60%. Normal LV size, wall thickness, wall motion and diastolic function. Normal chamber sizes. No valvular abnormalities. Procedure: A two-dimensional transthoracic echocardiogram with color flow and Doppler was performed. The study quality was technically adequate. Comparison is made with the echocardiogram of 03/07/2020. Left Ventricle: The left ventricle is normal in size and wall thickness. Left ventricular systolic function is normal. The ejection fraction is estimated to be 55-60%. There are no focal wall motion abnormalities. Diastolic parameters suggest probable normal left ventricular diastolic function and normal filling pressures. Right Ventricle: The right ventricle is normal in size and function. Atria: Both atria are normal in size. The interatrial septum grossly appears intact with no obvious evidence for an atrial septal defect. Mitral Valve: The mitral valve is normal in structure and function. There is no mitral regurgitation noted. Aortic Valve: The aortic valve is normal in structure and function. No aortic regurgitation is present. Tricuspid Valve: The tricuspid valve is normal in structure and function. There is trace tricuspid regurgitation. Pulmonary artery pressures cannot be estimated because of the lack of a measurable TR jet velocity. Pulmonic Valve: The pulmonic valve is not well visualized. Great Vessels: The aortic root is normal size. The ascending aorta could not be visualized. The inferior vena cava was not well visualized. Pericardium/ Pleura There is no pericardial effusion. There is no pleural effusion. MMode/2D Measurements & Calculations LVIDd: 4.5 cm LVOT diam: 2.3 cm LVIDs: 3.0 cm Ao root diam: 3.8 cm FS: 34.4 % IVSd: 0.89 cm LVPWd: 0.70 cm LV blood. diameter/BSA (cm/m^2): 2.0 LV sys. diameter/BSA (cm/m^2): 1.3 LA A2 area: 15.5 cm2 RA long axis: 5.1 cm LA A4 area: 14.7 cm2 RA area: 13.5 cm2 LA length (vol): 5.2 cm RA vol: 30.1 ml LA vol: 37.5 ml RA : 13.1 ml/m2 LA vol index: 16.3 ml/m2 TAPSE: 2.3 cm Doppler Measurements & Calculations Ao V2 max: 142.7 cm/sec LVOT Max Joel: 115.0 cm/sec Ao V2 mean: 100.8 cm/sec LV V1 max P.3 mmHg Ao max P.1 mmHg LV V1 VTI: 23.6 cm Ao mean P.5 mmHg JOEY(I,D): 3.7 cm2 Ao V2 VTI: 27.0 cm JOEY(V,D): 3.4 cm2 sev ratio: 0.87 JOEY indexed to BSA (cm^2/m^2): 1.6 MV E max joel: 95.5 cm/sec SV(LVOT): 98.9 ml MV A max joel: 88.6 cm/sec MV E/A: 1.1 Med Peak E' Joel: 8.1 cm/sec E/E' med: 11.7 Lat Peak E' Joel: 10.6 cm/sec E/E' lat: 9.0 E/e' average: 10.4 MV dec time: 0.20 sec Electronically signed by: Surekha Cramer M.D. on Reading Physician:07/12/2021 11:04 AM
[2021-07-12] MEDS: AMOXICILLIN 250 MG CAPSULE 500 MG PO (09:04)
[2021-07-12 09:29] LABS: Add Manual Diff / Slide Review NO; Basophils Absolute Auto 200 /uL (0-100); Basophils Percent Auto 1.5 % (0-2); Eosinophils Absolute Auto 500 /uL (0-450); Eosinophils Percent Auto 4.1 % (2-4); Hematocrit 40.2 % (41-53); Hemoglobin 14.2 g/dL (13.5-17.5); Lymphocytes Absolute Auto 2700 /uL (1100-4500); Mean Corpuscular HGB Conc 35.3 % (30-36); Mean Corpuscular Hemoglobin 31.4 PG (26-34); Monocytes Absolute Auto 800 /uL (0-900); Monocytes Percent Auto 6.6 % (3-14); Neutrophils Absolute Auto 7900 /uL (1500-7000); Neutrophils Percent Auto 65.8 % (50-75); Platelet Count 206 X10^3/uL (150-400); Red Blood Cell Count 4.52 X10^6/uL (4.5-5.9); Red Cell Distribution Width 13.8 % (11.6-14.8); White Blood Cell Count 12.1 X10^3/uL (4.5-11.0)
[2021-07-12 09:30] LABS: PTT Partial Thromboplastin Tim 44 SECONDS (26.4-36.2)
[2021-07-12 09:33] LABS: Alanine Aminotransferase 57 IU/L (<50); Albumin 3.9 g/dL (3.5-5.0); Albumin Globulin Ratio 1.6 (1.0-2.8); Alkaline Phosphatase 95 U/L (38-126); Aspartate Aminotransferase 53 IU/L (17-59); BUN Creatinine Ratio 16.7 (6-22); Bilirubin Total 0.5 mg/dL (0.2-1.3); Blood Urea Nitrogen 11 mg/dL (9-20); Calcium 9.1 mg/dL (8.4-10.2); Carbon Dioxide 26 mmol/L (22-32); Chloride 105 mmol/L (98-107); Estimated Glomerular Filt Rate > 60 mL/min (>60); Globulin 2.5 g/dL (1.7-4.1); Glucose 153 mg/dL (70-100); HEMOLYSIS 16 (0-50); Potassium 3.9 mmol/L (3.4-5.1); Sodium 136 mmol/L (137-145); Total Protein 6.4 g/dL (6.3-8.2)
--- NOTE | 2021-07-12 13:18 | PC.NURSE ---
Patient denies chest pain at this time.
[2021-07-12] MEDS: ASPIRIN EC 325 MG TABLET PO (14:47)
[2021-07-12 16:33] LABS: PTT Partial Thromboplastin Tim 39 SECONDS (26.4-36.2)
[2021-07-12] MEDS: HEPARIN 5,000 UNIT/ML VIAL 3000 UNIT IV (16:53)
[2021-07-12] MEDS: HEPARIN DRIP 25,000 UNIT/500 ML IV.SOLN 24 UNIT IV (19:37)
[2021-07-12] MEDS: ATORVASTATIN 20 MG TABLET 80 MG PO (21:01)
[2021-07-12 23:16] LABS: PTT Partial Thromboplastin Tim 52 SECONDS (26.4-36.2)
[2021-07-13] VITALS (29 sets, daily range): BP systolic 122–167; BP diastolic 60–90; PULSE 64–88; RESP 15–50; O2SAT 89–96
[2021-07-13 06:06] LABS: Add Manual Diff / Slide Review NO; Basophils Absolute Auto 100 /uL (0-100); Basophils Percent Auto 1.3 % (0-2); Eosinophils Absolute Auto 400 /uL (0-450); Eosinophils Percent Auto 4.9 % (2-4); Hematocrit 40.1 % (41-53); Hemoglobin 14.2 g/dL (13.5-17.5); Lymphocytes Absolute Auto 2500 /uL (1100-4500); Lymphocytes Percent Auto 29.2 % (25-40); Mean Corpuscular HGB Conc 35.4 % (30-36); Mean Corpuscular Hemoglobin 31.7 PG (26-34); Mean Corpuscular Volume 89.4 fL (80-100); Monocytes Absolute Auto 600 /uL (0-900); Monocytes Percent Auto 6.5 % (3-14); Neutrophils Absolute Auto 5000 /uL (1500-7000); Neutrophils Percent Auto 58.1 % (50-75); Platelet Count 189 X10^3/uL (150-400); Red Blood Cell Count 4.49 X10^6/uL (4.5-5.9); Red Cell Distribution Width 13.5 % (11.6-14.8); White Blood Cell Count 8.6 X10^3/uL (4.5-11.0)
[2021-07-13 06:13] LABS: PTT Partial Thromboplastin Tim 65 SECONDS (26.4-36.2)
[2021-07-13 06:15] LABS: Alanine Aminotransferase 60 IU/L (<50); Albumin 3.6 g/dL (3.5-5.0); Albumin Globulin Ratio 1.3 (1.0-2.8); Alkaline Phosphatase 89 U/L (38-126); Aspartate Aminotransferase 44 IU/L (17-59); BUN Creatinine Ratio 17.4 (6-22); Bilirubin Total 0.5 mg/dL (0.2-1.3); Blood Urea Nitrogen 12 mg/dL (9-20); Calcium 8.8 mg/dL (8.4-10.2); Carbon Dioxide 28 mmol/L (22-32); Chloride 102 mmol/L (98-107); Estimated Glomerular Filt Rate > 60 mL/min (>60); Globulin 2.7 g/dL (1.7-4.1); Glucose 157 mg/dL (70-100); HEMOLYSIS < 15 (0-50); Potassium 3.8 mmol/L (3.4-5.1); Sodium 135 mmol/L (137-145); Total Protein 6.3 g/dL (6.3-8.2)
[2021-07-13] MEDS: ASPIRIN EC 325 MG TABLET PO (08:56)
--- NOTE | 2021-07-13 13:47 | PC.NURSE ---
Patient is accepted to [facility] by Dr. Butler, I talked with Livier from the transfer center. [facility] ETA 1400 for arrival time to [facility] at 1600
--- NOTE | 2021-07-13 14:14 | PC.NURSE ---
Report called to Can WICK at #[phone], report provided to MARIA ESTHER WICK. Heparin drip continued with MARIA ESTHER crew.
== END 2021-07-13 14:20 | disposition short-term general hospital (02) ==
PROVIDERS: Emergency Medicine; Emergency Provider Emergency Medicine; PCP Student in an Organized Health Care Education/Training Program
DX: I21.4 Non-ST elevation (NSTEMI) myocardial infarction (principal); R06.02 Shortness of breath; Z20.822 Contact with and (suspected) exposure to COVID-19
CPT/HCPCS: 36415; 71045; 80053; 82550; 82553; 83690; 83735; 83880; 84484; 85007; 85025; 85730; 87635; 93005; 93010; 93306; 96365; 96366; 96368; 96375; 96376; 99284; C9803; J1644

== ENCOUNTER → 2022-01-05 10:11 | Outpatient (CLI) | payer OTHER, SELFPAY ==
[2020-01-15 14:16] VITALS: BMI 34.8
[2022-01-05 11:10] LABS: COVID19 -Nasal RAPID Negative (Negative)
== END ==
PROVIDERS: PCP Student in an Organized Health Care Education/Training Program; Referring Provider Orthopaedic Surgery; Visit Provider Orthopaedic Surgery
DX: Z20.822 Contact with and (suspected) exposure to COVID-19 (principal)
CPT/HCPCS: 87635; C9803

== ENCOUNTER 2022-01-07 06:24 | Day surgery (SDC) | payer OTHER, SELFPAY ==
[2020-01-15 14:16] VITALS: BMI 34.8
[2022-01-04 07:42] VITALS: BMI 36.0
[2022-01-07] VITALS (8 sets, daily range): BP systolic 117–154; BP diastolic 70–92; PULSE 74–82; RESP 16–20; TEMP 36.2–36.4; O2SAT 95–98; BMI 34.4
[2022-01-07] MEDS: LACTATED RINGERS 1,000 ML 42 ML IV ×2 (07:09→08:35)
--- NOTE | 2022-01-07 07:22 | PM.PREOP ---
Pre-operative Note Interval Note History & Physical reviewed/Exam performed by Physician: Yes Changes to H&P: No
[2022-01-07] MEDS: CEFAZOLIN 2 GM/100 ML PREMIX 100 ML IV (07:45)
[2022-01-07] MEDS: LIDOCAINE 2% W/EPI INJ 20 ML INJ (08:34)
--- NOTE | 2022-01-07 08:37 | SUR.OPER ---
Beach chair with skyron shoulder positioner. Lower body on padded OR bed. Head in foam padded head cradle, secured with straps. Non-operative arm secured <90 degrees abduction. Pillow under knees. Safety belt at thigh. Cloth tape over blanket over lower legs.
[2022-01-07] MEDS: SODIUM CHLORIDE IRRIG SOLUTION 3,000 ML, EPINEPHrine 1 MG IRR (08:46)
--- NOTE | 2022-01-07 09:10 | PM.OP.1 ---
Operative Date/Time/Diagnoses Date of procedure: 01/07/22 Time of procedure: 08:00 Pre-op diagnosis: Right shoulder rotator cuff tear Post-op diagnosis: same Procedure & Clinicians Procedure: Right shoulder rotator cuff repair with subacromial decompression, distal clavicle excision and extensive debridement Same procedure as scheduled: Yes Indications: Right rotator cuff tear with impingement and AC joint arthritis Surgeon: Obed Burt [employer] Manager: Padmaja Ricardo Anesthesia Type: General and Peripheral nerve block Operative Notes Findings: Small U shaped tear involving the supraspinatus. No sign of any full-thickness tearing to the infraspinatus or subscapularis. Mild partial articular sided tearing involving the supraspinatus and infraspinatus. Degenerative changes throughout the labrum. No sign of any significant proximal biceps pathology. Very mild arthritic changes to the glenohumeral joint. More significant arthritis to AC joint with inferior osteophytes. Subacromial and subdeltoid synovitis and bursitis. Also some synovitis involving bicipital anchor but no significant tearing. Closure Type: primary Estimated Blood Loss (mL): 5 Procedure in detail: On date of service, Patient was met in the holding area. The operative site was signed and witnessed by the OR staff. The surgeries once again discussed with the patient and any remaining questions they had were answered fully. Patient was taken back to the operating theater and placed on the operating table in a supine position. Great care was taken to ensure that all bony prominences were properly padded. Patient was then placed into the beach chair position. The head and neck were properly positioned and secured. A timeout was performed verifying patient's name, procedure, and the operative site. The upper extremity was then prepped and draped in the normal sterile fashion. Previously, the bony anatomy and portal sites were marked out as well as injected with Marcaine with epinephrine. An 11 blade was used to make an incision in the posterior aspect of the shoulder. The camera was placed, and a diagnostic shoulder scope was performed. Findings listed above. Next under direct visualization, a anterior portal was made. Shaver was brought in and extensive debridement of the degenerative changes to the labrum was performed. A grasper was used to remove the small loose body that was attached to the soft tissue in the anterior aspect of the shoulder joint. Some debridement of some degenerative changes of the proximal biceps was performed as well. Next the camera was placed into the subacromial space. A lateral portal was obtained under direct visualization. A combination of the shaver and vapor wand, a debridement of the inflamed tissue as well as inflamed bursa was performed. The lateral gutter was also cleaned out. There was a significant amount of bursitis and synovitis in both the subacromial and subdeltoid space. After this was all cleaned out, This gave us good visualization of the bursal aspect of the rotator cuff as well as the acromial arch. There was an obvious impingement lesion in the acromial arch. Next we turned our attention to the subacromial decompression. Next, a mechanical rasp was then used to do a subacromial decompression. This allowed us to convert the acromion to a type I acromial. This also allowed us to shave down the bony lesion in the acromial space. The rasp was placed into the lateral portal as well as the anterior portal in order to do a complete subacromial decompression. We next turned our attention to the distal clavicle. Using the shaver in the vapor wand we were able to clean out all the soft tissue around the distal clavicle as well as into the a.c. joint. This gave us good visualization of the arthritic changes to the distal clavicle as well as good of the a.c. joint allowing us to assess our distal clavicle excision. Of the inferior osteophytes coming off the distal clavicle. Using the mechanical rasp in the anterior portal, we were able to remove the inferior osteophytes as well as do a distal clavicle excision. The camera was then placed into the anterior portal which gave us a direct visualization of the a.c. joint allowing us to assess the distal clavicle excision. We then turned our attention to the rotator cuff tear. Patient had a U shaped tear involving the supraspinatus with about 2 cm of retraction. Due to the acute nature of the tear the cuff was still very mobile and had not scarred in at all. We could very easily pull it back to the rotator cuff footprint. Using the bur, the rotator cuff footprint was decorticated down to bleeding bone. Next, 2 medial anchors were placed. One anteriorly 1 posteriorly. Each anchor had 2 strands of fiber tape for a speed bridge repair. The sutures from the posterior anchor were passed through the posterior aspect of the supraspinatus. Then the sutures from the anterior anchor was passed through the anterior aspect of the supraspinatus. When pulling on the sutures we were able to reduce the supraspinatus to their respective footprints. Next, a punch was used to make a hole in the bone for the 2 medial anchors. This was done also anteriorly and posteriorly. A single suture from the anterior medial anchor and a single suture from the posterior medial anchor were placed into the anterior lateral anchor allowing us to tenodesis the rotator cuff across the rotator cuff footprint for the supraspinatus. This was then repeated with the remaining suture both anteriorly and posteriorly. And these 2 sutures were placed into the posterior medial anchor and tenodesis posteriorly providing a crisscross pattern providing a secure repair of the supraspinatus. After the repair there was good coverage of the entire humeral head and a very secure repair of the rotator cuff. Shoulder was taken through range of motion and there was no sign of any other tearing. No sign of any impingement lesions. Camera and cannulas were removed. Portal sites were closed. Patient's shoulder was cleaned, dried, and dressed. Patient was extubated and taken to the PACU in stable condition. Complications: none Post-operative Condition: stable Disposition: PACU Plan for aftercare: Patient will follow our postop protocol for rotator cuff repair
[2022-01-07] MEDS: ALBUTEROL/IPRATROPIUM 3 ML AMPUL INH (09:59)
--- NOTE | 2022-01-07 10:21 | SUR.PHASEII ---
Report received from DELANO Scott and braxton cartwright.
== END 2022-01-07 10:38 | disposition home or self-care (01) ==
PROVIDERS: PCP Student in an Organized Health Care Education/Training Program; Referring Provider Student in an Organized Health Care Education/Training Program; Visit Provider Orthopaedic Surgery
PROC: (CPT 29827; principal; 2022-01-07 07:45)
DX: M75.111 Incomplete rotator cuff tear or rupture of right shoulder, not specified as traumatic (principal); M75.41 Impingement syndrome of right shoulder; M19.011 Primary osteoarthritis, right shoulder; M75.51 Bursitis of right shoulder; M65.811 Other synovitis and tenosynovitis, right shoulder; M25.711 Osteophyte, right shoulder; M24.011 Loose body in right shoulder
CPT/HCPCS: 29827; 29826; 29824; 29823; 64450; J0171; J0690; J1100; J2250; J2405; J2704; J3010

== ENCOUNTER → 2022-03-22 14:50 | Outpatient (CLI) | payer OTHER, SELFPAY ==
[2020-01-15 14:16] VITALS: BMI 34.8
--- NOTE | 2022-03-22 14:52 | DI.CT.S_ITS ---
PROCEDURE: CT IVP A/P W/WO INDICATIONS: Gross hematuria TECHNIQUE: Optional 5 mm thick noncontrast images acquired from the diaphragm to the symphysis pubis. After the administration of intravenous contrast, 5 mm thick images acquired from the diaphragm to the symphysis pubis after a 10-minute delay. 2 mm thick coronal and sagittal reformats were then performed of the kidneys and ureters. For radiation dose reduction, the following was used: automated exposure control, adjustment of mA and/or kV according to patient size. COMPARISON: None. FINDINGS: Image quality: Excellent. Lung bases: Lung bases are clear. Heart size is normal. Urinary system: Both kidneys are normal in size, without hydronephrosis. Nonobstructive calculi are present within the bilateral kidneys. The largest right stone measures 7 mm in diameter and the largest left stone measures 8 mm in diameter. These stones measure approximately 5-600 Hounsfield units in density. No perinephric fat stranding. There is normal bilateral renal enhancement. Low-density cystic lesions are present within the bilateral cortices. Renal calyces appear normal in morphology when filled with contrast. Opacified portions of both ureters demonstrate normal caliber. Bladder wall thickness is normal. No calcified bladder stones. Other solid organs: Liver is normal in size and enhancement. Gallbladder is unremarkable. Biliary system is non dilated. Pancreas enhances normally. Spleen is normal in size and enhancement. No adrenal nodules. Peritoneum and bowel: Bowel loops demonstrate normal wall thickness and caliber. The appendix is thin walled and gas filled. No free fluid or air. Nodes and vessels: No retroperitoneal or mesenteric adenopathy by size criteria. Aorta and inferior vena cava are normal in size. Abdominal wall: No ventral hernias. Pelvis: No pathologic free pelvic fluid. No inguinal hernias or adenopathy. Bones: No suspicious bony lesions. No vertebral body compression fractures. There are displaced bilateral pars interarticularis defects with grade 1 L5 on S1 anterolisthesis. IMPRESSION: 1. Bilateral nonobstructing nephrolithiasis. No hydronephrosis, hydroureter, or ureterolithiasis. 2. No suspicious enhancing renal mass lesions or bladder lesions. 3. No acute intra-abdominal findings. Normal appendix. 4. L5-S1 spondylolysis and spondylolisthesis. Dictated by: Rabia Thacker M.D. on 03/22/2022 at 16:20 Approved by: Rabia Thacker M.D. on 03/22/2022 at 16:26
[2022-03-22 15:17] LABS: Estimated Glomerular Filt Rate > 60 mL/min (>60)
== END ==
PROVIDERS: Radiology Diagnostic Radiology; PCP Student in an Organized Health Care Education/Training Program; Referring Provider Internal Medicine Nephrology; Visit Provider Internal Medicine Nephrology
DX: N20.0 Calculus of kidney (principal); R31.0 Gross hematuria; M47.817 Spondylosis without myelopathy or radiculopathy, lumbosacral region; M43.16 Spondylolisthesis, lumbar region
CPT/HCPCS: 36415; 74178; 82565; Q9967

== ENCOUNTER → 2022-04-06 12:49 | Outpatient (CLI) | payer OTHER, SELFPAY ==
[2022-04-02 15:54] VITALS: BMI 34.8
--- NOTE | 2022-04-06 12:50 | DI.RAD.S_ITS ---
PROCEDURE: XR KUB INDICATIONS: Kidney Stone TECHNIQUE: One view of the abdomen acquired. COMPARISON: [facility], CT, CT IVP A/P W/WO, 03/22/2022, 15:28. FINDINGS: Surgical changes and devices: None. Bowel: Bowel gas pattern is normal. Soft tissues: No suspicious abdominal calcifications. Tiny calyceal stones on the left. Right lower pole stone. Visualized solid organ contours appear normal in size. Bones: No suspicious bony lesions. IMPRESSION: Nephrolithiasis. Dictated by: Zak Ramirez M.D. on 04/06/2022 at 18:32 Approved by: Zak Ramirez M.D. on 04/06/2022 at 18:33
== END ==
PROVIDERS: PCP Student in an Organized Health Care Education/Training Program; Referring Provider Specialist; Visit Provider Specialist
DX: N20.0 Calculus of kidney (principal); R31.0 Gross hematuria; N23 Unspecified renal colic; Z87.442 Personal history of urinary calculi; Z84.1 Family history of disorders of kidney and ureter
CPT/HCPCS: 52000; 74018; 81002; 99215

== ENCOUNTER 2022-04-30 06:34 | Day surgery (SDC) | payer OTHER, SELFPAY ==
[2022-04-02 15:54] VITALS: BMI 34.8
[2022-04-28 12:29] VITALS: BMI 36.6
--- NOTE | 2022-04-30 | DI.RAD.S_ITS ---
PROCEDURE: XR KUB INDICATIONS: Left renal calculi TECHNIQUE: One view of the abdomen acquired. COMPARISON: [facility], CT, CT IVP A/P W/WO, 03/22/2022, 15:28. [facility], CR, XR KUB, 04/06/2022, 14:01. FINDINGS: Surgical changes and devices: None. Bowel: Bowel gas pattern is normal. Soft tissues: Small calculus at the left renal pelvis is suspected. The calculus at the inferior pole of the left kidney is not appreciated. Previously seen right kidney stones are not identified. No suspicious abdominal calcifications. Visualized solid organ contours appear normal in size. Bones: No suspicious bony lesions. IMPRESSION: Possible residual calculus in the left kidney. The additional previously seen bilateral kidney stones are not identified. CT KUB could be considered for further evaluation. Dictated by: Jaycob Desai M.D. on 04/30/2022 at 8:22 Approved by: Jaycob Desai M.D. on 04/30/2022 at 8:26
[2022-04-30 06:54] VITALS: BP 134/92; PULSE 83; RESP 16; TEMP 36.1; O2SAT 96; BMI 35.9
[2022-04-30] MEDS: LACTATED RINGERS 1,000 ML 21 ML IV (07:08)
--- NOTE | 2022-04-30 07:22 | PM.PREOP ---
Pre-operative Note COVID-19 Criteria for continued procedure: Expected advancement of disease process, Possibility delay results in more complex future surgery or treatment, Continuing or worsening of significant or severe pain, Delay expected to result in less-positive ultimate med/surg outcome, Non-surgical alternatives not available or appropriate per current SOC and Pt's co-morbidities/risk factors for morb/mort if COVID after proc. Interval Note History & Physical reviewed/Exam performed by Physician: Yes Changes to H&P: Yes
[2022-04-30] MEDS: CEFAZOLIN 2 GM/100 ML PREMIX 100 ML IV (08:02)
--- NOTE | 2022-04-30 08:20 | SUR.OPER ---
Supine on ESWL table sling platform, head on pillow, arms padded and tucked at sides, legs uncrossed, gel pad under bilateral lower leg
[2022-04-30 08:53] VITALS: BP 130/85; PULSE 73; RESP 12; TEMP 36.8; O2SAT 95
[2022-04-30 08:56] VITALS: BP 122/83; PULSE 72; RESP 14; O2SAT 94
[2022-04-30 09:01] VITALS: BP 128/69; PULSE 71; RESP 14; O2SAT 95
--- NOTE | 2022-04-30 09:05 | P.OP_ITS ---
Operative Date/Time/Diagnoses Date of procedure: 04/30/22 Time of procedure: 08:45 Pre-op diagnosis: 1. Left nephrolithiasis. 2. History of left renal colic. Post-op diagnosis: same Procedure & Clinicians Procedure: 1. Left extracorporeal shockwave lithotripsy (maximal power level 7.0 x 2000 shocks). Same procedure as scheduled: Yes Indications: 1. Left nephrolithiasis x2. 2. History of left renal colic. Surgeon: Valentin Cramer Click Yes if Unassisted: Yes Anesthesia Type: General Operative Notes Findings: The index calculi seen on preoperative imaging are unchanged in location and t reatment setting. Closure Type: not applicable Specimen(s): none sent Estimated Blood Loss (mL): 0 Procedure in detail: The patient was positioned in supine was administered general anesthesia. The above-described interpolar calculi was then localized X, Y, and Z plane. Lithot ripsy was commenced at minimal power level for 200 shocks. A 2 minute pause was then conducted. Lithotripsy was then resumed and the power level was gradually increased to 7.0. The stone and its fragments were localized numerous times throughout the case at 1000 shocks there was excellent evidence of stone comminution. The more inferior position stone was then localized in the X, Y, and Z plane. Lithotripsy was then commenced in the stone and its fragments were relocalized numerous times throughout the case. At 500 shocks was excellent evidence of stone comminution. An additional 500 shocks were divided between the 2 separate collection of stone fragments. A 2000 shocks treatment was halted. The patient was then awakened, transferred to [facility], and transported recovery in stable condition. Complications: none Post-operative Condition: stable Disposition: PACU Plan for aftercare: Discharge home.
[2022-04-30 09:08] VITALS: BP 123/70; PULSE 76; RESP 14; O2SAT 97
[2022-04-30] MEDS: OXYCODONE/ACETAMINOPHEN 5/325 TABLET 1 TAB PO (09:23)
[2022-04-30] MEDS: FUROSEMIDE 20 MG/2 ML VIAL IV (09:24)
[2022-04-30 09:29] VITALS: BP 127/94; PULSE 68; RESP 16; O2SAT 97
== END 2022-04-30 09:56 | disposition home or self-care (01) ==
PROVIDERS: PCP Student in an Organized Health Care Education/Training Program; Referring Provider Specialist; Visit Provider Anesthesiology
PROC: (CPT 50590; principal; 2022-04-30 07:45)
DX: N20.0 Calculus of kidney (principal); G47.33 Obstructive sleep apnea (adult) (pediatric); Z87.442 Personal history of urinary calculi
CPT/HCPCS: 50590; 74018; 82962; J0690; J1885; J1940; J2405; J2704; J3010

== ENCOUNTER → 2022-06-01 15:04 | Outpatient (CLI) | payer OTHER, SELFPAY ==
[2022-05-03 14:57] VITALS: BMI 34.8
--- NOTE | 2022-06-01 15:05 | DI.RAD.S_ITS ---
PROCEDURE: XR KUB INDICATIONS: kidney stones and hematuria TECHNIQUE: One view of the abdomen acquired. COMPARISON: [facility], CT, CT IVP A/P W/WO, 03/22/2022, 15:28. [facility], CR, XR KUB, 04/30/2022, 6:33. FINDINGS: Surgical changes and devices: None. Bowel: Bowel gas pattern is normal. Soft tissues: Small 5 millimeter density projects over the expected region of the left kidney. Visualized solid organ contours appear normal in size. Bones: No suspicious bony lesions. IMPRESSION: Possible small left renal stone. Additional renal stones identified by prior CT imaging not identified by plain film radiograph. Dictated by: Doreen Hernandez MD, PhD on 06/01/2022 at 16:12 Approved by: Doreen Hernandez MD, PhD on 06/01/2022 at 16:14
== END ==
PROVIDERS: PCP Student in an Organized Health Care Education/Training Program; Referring Provider Specialist; Visit Provider Specialist
DX: N20.0 Calculus of kidney (principal); R31.0 Gross hematuria
CPT/HCPCS: 74018

== ENCOUNTER → 2022-06-15 15:56 | Outpatient (CLI) | payer OTHER, SELFPAY ==
[2022-05-03 14:57] VITALS: BMI 34.8
--- NOTE | 2022-06-15 15:57 | DI.MRI.S_ITS ---
PROCEDURE: MR LUMBAR SPINE WO CON INDICATIONS: Spondylolisthesis, lumbosacral region TECHNIQUE: Noncontrast sagittal T1 spin echo and T2 fast echo, sagittal STIR, and T2 fast spin echo through the lumbar spine. In cases with scoliosis, additional coronal T2 fast spin echo may be performed. COMPARISON: [facility], MR, MR LUMBAR SPINE WO CON, 06/11/2021, 15:40. FINDINGS: Image quality: Excellent. Alignment and Curvature: Grade 2 anterolisthesis is present at L5-S1 similar to the study dated June 11, 2021. Spinal alignment is otherwise normal. Bone Marrow: Marrow is of normal overall signal. No acute vertebral body compression fractures. Spinal Cord: Conus medullaris terminates at the L1 level. Visualized cord demonstrates normal signal and size. Paraspinous Soft Tissues: No paravertebral masses. T12-L1: Mild disc desiccation. Broad-based disc bulge. No canal stenosis or foraminal stenosis. Findings are unchanged from the study dated June 11, 2021. L1-L2: Mild disc desiccation. Broad-based disc bulge. Mild facet and ligamentum flavum hypertrophy. No canal stenosis. No foraminal stenosis. Unchanged. L2-L3: Broad-based disc bulge. No canal stenosis. No foraminal stenosis. L3-L4: Broad-based disc bulge. Mild disc desiccation. No canal stenosis. No foraminal stenosis. L4-L5: Mild disc desiccation. Broad-based disc bulge. Mild facet ligamentum flavum hypertrophy. No canal stenosis. Moderate bilateral neural foraminal stenosis. These findings are unchanged when compared with the study dated June 11, 2021. L5-S1: Grade 2 anterolisthesis. Severe disc desiccation and height loss and reactive endplate changes are redemonstrated. No canal stenosis. There is severe bilateral neural foraminal stenosis with flattening of the exiting nerve roots. Findings are similar to the study from 2021. IMPRESSION: 1. Marked anterolisthesis at L5-S1 with degenerative disc disease and severe bilateral neural foraminal stenosis and flattening of the exiting nerve roots. Findings are similar to the study dated June 11, 2021. Dictated by: Rabia Thacker M.D. on 06/15/2022 at 17:46 Approved by: Rabia Thacker M.D. on 06/15/2022 at 17:49
== END ==
PROVIDERS: PCP Student in an Organized Health Care Education/Training Program; Referring Provider Physical Medicine & Rehabilitation Pain Medicine; Visit Provider Physical Medicine & Rehabilitation Pain Medicine
DX: M43.17 Spondylolisthesis, lumbosacral region (principal); M51.37 Other intervertebral disc degeneration, lumbosacral region; M48.07 Spinal stenosis, lumbosacral region; N20.0 Calculus of kidney
CPT/HCPCS: 72148; 74018

== ENCOUNTER → 2022-06-15 15:58 | Outpatient (CLI) | payer OTHER, SELFPAY ==
[2022-05-03 14:57] VITALS: BMI 34.8
--- NOTE | 2022-06-15 16:00 | DI.RAD.S_ITS ---
PROCEDURE: XR KUB INDICATIONS: left flank pain TECHNIQUE: One view of the abdomen acquired. COMPARISON: [facility], CT, CT IVP A/P W/WO, 03/22/2022, 15:28. [facility], CR, XR KUB, 06/01/2022, 15:08. [facility], CR, XR KUB, 04/30/2022, 6:33. FINDINGS: No definite renal stones identified radiographically. Nonobstructive bowel gas pattern. IMPRESSION: No definite renal stones identified radiographically. CT KUB could be obtained for further evaluation if clinically indicated. Dictated by: Jose Salinas M.D. on 06/15/2022 at 18:05 Approved by: Jose Salinas M.D. on 06/15/2022 at 18:07
== END ==
PROVIDERS: PCP Student in an Organized Health Care Education/Training Program; Referring Provider Specialist; Visit Provider Specialist
DX: N20.0 Calculus of kidney (principal)
CPT/HCPCS: 74018

== ENCOUNTER → 2022-06-30 09:09 | Outpatient (CLI) | payer OTHER, SELFPAY ==
[2022-05-03 14:57] VITALS: BMI 34.8
--- NOTE | 2022-06-30 09:20 | DI.CT.S_ITS ---
PROCEDURE: CT KIDNEY URETER BLADDER (KUB) INDICATIONS: Kidney stones TECHNIQUE: Axial sections were acquired from the lung bases to the pubic symphysis. Coronal and sagittal reformats were performed. For radiation dose reduction, the following was used: automated exposure control, adjustment of mA and/or kV according to patient size. COMPARISON: [facility], CT, CT IVP A/P W/WO, 03/22/2022, 15:28. FINDINGS: Image quality: Excellent. Lung bases: Unremarkable. Heart: No significant findings. URINARY: Right Kidney: There are multiple nonobstructing calculi within the right renal collecting system. The largest measures 9 mm in diameter and approximately 730 Hounsfield units in density. No hydronephrosis. A low-density cortical cyst is present at the upper pole. Right Ureter: No hydroureter. Left Kidney: A nonobstructing 2 mm calculus is present at the upper pole of the left kidney. A low-density cortical cyst is present at the lower pole. The 7 and 8 mm calculi within the left kidney visualized on the comparison CT dated March 22, 2022 are no longer visualized and has presumably passed through the renal collecting system. Left Ureter: No hydroureter. Bladder: Normal wall thickness. No stones. ABDOMEN: Liver: Unremarkable. Gallbladder: Contracted. Biliary ducts: Unremarkable. Pancreas: Unremarkable. Spleen: Unremarkable. Adrenal Glands: Unremarkable. Stomach and Bowel: Stomach, small bowel loops, and colon are unremarkable. The appendix is thin walled and gas filled. Peritoneum: No abnormal intraperitoneal fluid. No free air. Ventral Wall: No hernia. Abdominal Nodes: No enlarged retroperitoneal or mesenteric lymph nodes. Vessels: Aorta and inferior vena cava are normal in size. PELVIS: Pelvic Organs: Unremarkable. Pelvic Nodes: Unremarkable. Miscellaneous: No inguinal hernias are seen. Bones: Unremarkable. Probable bone island is redemonstrated within the right iliac. IMPRESSION: 1. Bilateral nonobstructing nephrolithiasis. No hydronephrosis, hydroureter, or ureterolithiasis. 2. Previously visualized 7 and 8 mm left renal calculi no longer visualized. 3. No acute intra-abdominal findings. Normal appendix. Dictated by: Rabia Thacker M.D. on 06/30/2022 at 10:43 Approved by: Rabia Thacker M.D. on 06/30/2022 at 10:58
== END ==
PROVIDERS: PCP Student in an Organized Health Care Education/Training Program; Referring Provider Specialist; Visit Provider Specialist
DX: N20.0 Calculus of kidney (principal); N23 Unspecified renal colic; R31.0 Gross hematuria
CPT/HCPCS: 74176; Q9967

== ENCOUNTER 2022-08-09 14:12 | Day surgery (SDC) | payer OTHER, SELFPAY ==
[2022-05-03 14:57] VITALS: BMI 34.8
[2022-08-04 13:23] VITALS: BMI 36.6
[2022-08-09] VITALS (7 sets, daily range): BP systolic 120–140; BP diastolic 77–94; PULSE 63–87; RESP 14–20; TEMP 35.9–36.6; O2SAT 94–96; BMI 36.6
--- NOTE | 2022-08-09 | DI.RAD.S_ITS ---
PROCEDURE: XR KUB INDICATIONS: Right nephrolithiasis TECHNIQUE: One view of the abdomen acquired. COMPARISON: [facility], , XR KUB, 06/15/2022, 15:59. FINDINGS: Surgical changes and devices: None. Bowel: Significant fecal stasis throughout the colon is seen. No gross pneumoperitoneum. Soft tissues: Small calcifications are seen projecting in the region of right kidney measures up to 7 mm in size.. Visualized solid organ contours appear normal in size. Bones: No suspicious bony lesions. IMPRESSION: Suggestion of right renal calculi. Moderate constipation. No gross free air. Dictated by: James Villegas M.D. on 08/09/2022 at 16:06 Approved by: James Villegas M.D. on 08/09/2022 at 16:07
--- NOTE | 2022-08-09 14:45 | SUR.PREOP ---
KUB done. Did Ex Lax for bowel prep, states he does not like miralax. had formed brown BM today.
[2022-08-09] MEDS: LACTATED RINGERS 1,000 ML 21 ML IV (14:52)
--- NOTE | 2022-08-09 15:05 | PM.PREOP ---
Pre-operative Note COVID-19 Criteria for continued procedure: Expected advancement of disease process, Possibility delay results in more complex future surgery or treatment, Continuing or worsening of significant or severe pain, Deterioration of the patient's condition or overall health, Delay expected to result in less-positive ultimate med/surg outcome and Non-surgical alternatives not available or appropriate per current SOC Interval Note History & Physical reviewed/Exam performed by Physician: Yes Changes to H&P: No
--- NOTE | 2022-08-09 15:50 | SUR.OPER ---
Supine on ESW[employer] table, head on pillow, legs uncrossed, arms padded, heedls padded, foam triangle under legs provided by [employer] rep.
--- NOTE | 2022-08-09 16:23 | P.OP_ITS ---
Operative Date/Time/Diagnoses Date of procedure: 08/09/22 Time of procedure: 16:20 Pre-op diagnosis: 1. Right nephrolithiasis 2. Right renal colic Post-op diagnosis: same Procedure & Clinicians Procedure: 1. Right extracorporeal shockwave lithotripsy (maximal power level 7.5 x 1650 shocks). Same procedure as scheduled: Yes Indications: 1. Right nephrolithiasis (x2). 2. Right renal colic. Surgeon: Valentin Cramer Click Yes if Unassisted: Yes Anesthesia Type: General Operative Notes Findings: Index calculi unchanged in size and position compared to preoperative imaging by KUB. The largest and presenting calculus originally at right ureteropelvic junction on CT imaging has migrated into the more central renal pelvic collecting system on today's film as was the case and previous KUB imaging preoperatively. One thousand two hundred fifty shocks at maximal power level 7.5 were delivered to the 1.2 cm renal pelvic calculus. Four hundred shocks were delivered to a 5 mm, nonobstructing right interpolar calyceal calculus at maximal power level 7.5. Closure Type: not applicable Specimen(s): none sent Estimated Blood Loss (mL): 0 Blood products transfused: none Procedure in detail: Patient was positioned supine was administered general anesthesia. The 1.2 cm right renal pelvic calculus was localized in the X, Y, and Z plane. Lithotripsy was commenced at minimal power level for 200 shocks. A 2 minute pause was then conducted. Lithotripsy was then again started in the power level was gradually increased to 7.5. At 1250 shocks there was no visible evidence of stone fragments remaining. The 5 mm nonobstructing right interpolar calculus was then localized in the X, Y, and Z plane. Lithotripsy was then commenced and a total of 400 shocks were delivered. Again radiographic evidence of the stone disappeared fluoroscopically. Treatment was then halted. The patient was then [place] [facility] [place] in stable condition. Complications: none Post-operative Condition: stable Disposition: PACU Plan for aftercare: Discharge home.
[2022-08-09] MEDS: FUROSEMIDE 40 MG/4 ML VIAL 20 MG IV (16:34)
== END 2022-08-09 17:14 | disposition home or self-care (01) ==
PROVIDERS: PCP Student in an Organized Health Care Education/Training Program; Referring Provider Specialist; Visit Provider Specialist
PROC: (CPT 50590; principal; 2022-08-09 15:45)
DX: N20.0 Calculus of kidney (principal)
CPT/HCPCS: 50590; 74018; J1100; J1940; J2405; J2704; J3010

== ENCOUNTER → 2022-09-23 13:51 | Outpatient (CLI) | payer OTHER, SELFPAY ==
[2022-05-03 14:57] VITALS: BMI 34.8
--- NOTE | 2022-09-23 13:52 | DI.RAD.S_ITS ---
PROCEDURE: XR KUB INDICATIONS: Kidney stones TECHNIQUE: One view of the abdomen acquired. COMPARISON: [facility], CR, XR KUB, 08/09/2022, 14:23. [facility], CR, XR KUB, 06/15/2022, 15:59. FINDINGS: Surgical changes and devices: None. Bowel: Bowel gas pattern is normal. Soft tissues: No suspicious abdominal calcifications. Visualized solid organ contours appear normal in size. Previous calcifications over the right renal shadow are not seen on current exam. Bones: No suspicious bony lesions. IMPRESSION: No calcifications are seen to suggest renal calculi. Dictated by: Kwadwo Clarke M.D. on 09/23/2022 at 15:43 Approved by: Kwadwo Clarke M.D. on 09/23/2022 at 15:44
== END ==
PROVIDERS: PCP Student in an Organized Health Care Education/Training Program; Referring Provider Specialist; Visit Provider Specialist
DX: N20.0 Calculus of kidney (principal); N23 Unspecified renal colic; Z87.442 Personal history of urinary calculi; Z84.1 Family history of disorders of kidney and ureter
CPT/HCPCS: 74018; 99215

== ENCOUNTER → 2023-10-03 09:44 | Outpatient (CLI) | payer OTHER, SELFPAY ==
[2022-05-03 14:57] VITALS: BMI 34.8
--- NOTE | 2023-10-03 09:46 | DI.RAD.S_ITS ---
PROCEDURE: XR KUB INDICATIONS: Kidney stones TECHNIQUE: One view of the abdomen acquired. COMPARISON: [facility], CR, XR KUB, 09/23/2022, 13:58. FINDINGS: Surgical changes and devices: None. Bowel: Bowel gas pattern is normal. Soft tissues: There is 0.9 cm calcification within the region of the left kidney. Visualized solid organ contours appear normal in size. Phlebolith within the left hemipelvis. Bones: No suspicious bony lesions. Mild osteoarthritic changes to both hip joints and SI joints. IMPRESSION: There is a 0.9 cm calcification within the region of the left kidney which may represent a left renal calculus. Dictated by: Jayden Hardy M.D. on 10/03/2023 at 14:44 Approved by: Jayden Hardy M.D. on 10/03/2023 at 14:52
== END ==
PROVIDERS: PCP Student in an Organized Health Care Education/Training Program; Referring Provider Urology; Visit Provider Urology
DX: N20.0 Calculus of kidney (principal)
CPT/HCPCS: 74018

== ENCOUNTER → 2023-10-18 06:34 | Outpatient (CLI) | payer OTHER, SELFPAY ==
[2022-05-03 14:57] VITALS: BMI 34.8
--- NOTE | 2023-10-18 06:35 | DI.CT.S_ITS ---
PROCEDURE: CT ABDOMEN PELVIS WO CON INDICATIONS: Kidney stone TECHNIQUE: Axial sections were acquired from the lung bases to the pubic symphysis. Coronal and sagittal reformats were performed. For radiation dose reduction, the following was used: automated exposure control, adjustment of mA and/or kV according to patient size. COMPARISON: [facility], CT, CT KIDNEY URETER BLADDER (KUB), 06/30/2022, 9:18. FINDINGS: Image quality: Diagnostic. Lower Chest: No significant findings. URINARY: Right Kidney: Two nonobstructing right intrarenal calculi, the largest measuring 4 mm. Small upper pole cortical cyst. No perinephric inflammation or hydronephrosis. Interval removal of renal pelvis stone. Right Ureter: No hydroureter, ureteral calculus, or periureteric inflammation. Left Kidney: Six or seven nonobstructing intrarenal calculi. The largest measures about 9 mm and is located centrally in the renal pelvis. Hounsfield units measure about 700. No caliceal dilatation. No perinephric inflammation. Left Ureter: No hydroureter, ureteral calculus, or periureteric inflammation. Bladder: Normal wall thickness. No stones. ABDOMEN: Liver: No contour-deforming solid mass. Gallbladder: Contracted gallbladder. No visible stone. Biliary ducts: No biliary dilation. Pancreas: Normal size and morphology without visible ductal dilatation or inflammation. Spleen: Size is within normal limits. Adrenal Glands: No adrenal nodules. Stomach and Bowel: Stomach and small bowel loops are normal caliber. Normal appendix. Normal colon. Peritoneum: No abnormal intraperitoneal fluid. No free air. Ventral Wall: No hernia. Abdominal Nodes: No enlarged retroperitoneal or mesenteric lymph nodes. Vessels: The abdominal aorta, IVC, and portal vein are of normal caliber. PELVIS: Pelvic Organs: Normal size prostate gland. Pelvic Nodes: Unremarkable. Miscellaneous: No inguinal hernias are seen. Bones: Bilateral L5 pars defects and grade 2 L5-S1 anterolisthesis and severe disc height loss. IMPRESSION: 9 mm nonobstructing left renal pelvis calcification. No CT evidence of recent obstructive uropathy. Tiny bilateral nonobstructing intrarenal calculi. Interval removal of right renal pelvis calculus. Dictated by: Norma Car M.D. on 10/18/2023 at 12:16 Approved by: Norma Car M.D. on 10/18/2023 at 12:22
== END ==
LOC: CT 06:34
PROVIDERS: Referring Provider Urology; Visit Provider Urology
DX: N20.0 Calculus of kidney (principal)
CPT/HCPCS: 74176

== ENCOUNTER → 2023-10-20 08:11 | Outpatient (CLI) | payer OTHER, SELFPAY ==
[2022-05-03 14:57] VITALS: BMI 34.8
--- NOTE | 2023-10-20 08:12 | DI.RAD.S_ITS ---
PROCEDURE: XR KUB INDICATIONS: Evaluate left kidney stones TECHNIQUE: One view of the abdomen acquired. COMPARISON: [facility], CT, CT ABDOMEN PELVIS WO CON, 10/18/2023, 6:44. [facility], CR, XR KUB, 10/03/2023, 9:54. FINDINGS: Surgical changes and devices: None. Bowel: Bowel gas pattern is normal. Soft tissues: 9 mm left renal pelvic stone seen on CT is visible by plain film. Visualized solid organ contours appear normal in size. Bones: No suspicious bony lesions. IMPRESSION: 9 mm left renal pelvic stone. Dictated by: Zak Ramirez M.D. on 10/20/2023 at 10:20 Approved by: Zak Ramirez M.D. on 10/20/2023 at 10:23
== END ==
PROVIDERS: Referring Provider Urology; Visit Provider Urology
DX: N20.0 Calculus of kidney (principal); M54.89 Other dorsalgia; Z87.442 Personal history of urinary calculi; Z84.1 Family history of disorders of kidney and ureter
CPT/HCPCS: 74018; 81002; 99214

== ENCOUNTER 2023-10-25 06:12 | Day surgery (SDC) | payer OTHER, SELFPAY ==
[2022-05-03 14:57] VITALS: BMI 34.8
[2023-10-25 06:44] VITALS: BP 130/74; PULSE 81; RESP 17; TEMP 36.1; O2SAT 94; BMI 33.4
[2023-10-25] MEDS: LACTATED RINGERS 1,000 ML 42 ML IV (07:04)
--- NOTE | 2023-10-25 07:42 | PM.PREOP ---
Pre-operative Note COVID-19 COVID-19 status: Not tested Interval Note History & Physical reviewed/Exam performed by Physician: Yes Changes to H&P: No
[2023-10-25] MEDS: CEFAZOLIN 2 GM/100 ML PREMIX 100 ML IV (07:49)
--- NOTE | 2023-10-25 08:02 | SUR.OPER ---
Lithotomy on padded OR bed, head on pillow, arms secured on padded arm boards at <90 degrees abduction. Legs secured in padded yellow fins stirrups.
[2023-10-25 08:43] VITALS: BP 153/93; PULSE 97; RESP 19; TEMP 36.4; O2SAT 97
--- NOTE | 2023-10-25 08:44 | PM.OP.1 ---
Procedure & Clinicians Procedure: Left extracorporeal shockwave lithotripsy with cystoscopy and left ureteral stent placement Same procedure as scheduled: Yes Indications: This 58-year-old male presented with complaints of left flank pain workup revealed a 9 mm and perhaps a smaller stone in the left kidney and he presents this time for left extracorporeal shockwave lithotripsy and cystoscopy with stent placement to treat his stone burden on the left. Surgeon: Karsten Song Click Yes if Unassisted: Yes Anesthesia Type: General Operative Notes Findings: Urethral meatus is normal urethra is normal along its length with normal mucosa the sphincter as well coapted and prostatic fossa shows moderate obstructive character with normal mucosa. It does not bulge into the bladder. Ureteral orifices in normal position with clear efflux the bladder mucosa is normal and there were no other abnormalities noted within the bladder. The stone which appeared there were 2 1 in the mid kidney 1 lower in the kidney the upper stone was larger to proximally 9 mm and the lower 1 was somewhere between 3 and 4 mm. The upper stone received 1500 shocks at level 7 and appeared to fragment well the lower stone received 500 shocks at level 7 and also appeared to fragment well. A 7 Icelandic by multi length stent was left in good position in the left collecting system without a string. No other abnormalities were noted. Closure Type: not applicable Specimen(s): none sent Prosthetic devices, grafts, tissues, transplants, or devices: Seven Icelandic by multi length ureteral stent left in the left collecting system. The stent had no string attached. Estimated Blood Loss (mL): 0 Blood products transfused: none Procedure in detail: Procedure in detail: After informed consent was obtained, the patient was identified and brought to the operating room where he is placed on the lithotripsy are. Once there anesthesia was induced to maintain. Ensuring an adequate level of anesthesia the patient was transitioned to the lithotomy position where he was prepped, draped, prepared for Transurethral procedure. After prepping, draping, time-out, antibiotics and ensuring an adequate level of anesthesia a 22 Icelandic cystoscope was passed through the urethra prostate and then of the bladder under direct vision. Once in the bladder cystoscopy was performed. The left ureteral orifice was identified and a hybrid guidewire passed up into the collecting system under fluoroscopic visualization. With the wire in good position stent was passed over the wire in a coaxial fashion and positioned in the renal pelvis under fluoroscopic visualization and then bladder under direct vision. The nylon harness was removed the stent was left in good position. The bladder was drained the scope was removed and the patient went onto lithotripsy. The larger upper stone was then positioned via the targeting system and received shockwave at level 7 with periodic reimaging and Re localization to ensure maximal energy delivery to the stone. At 1000 and 1500 shocks the shockwave head was rotated out and fluoroscopy performed. At a 1000 shocks it appeared that the stone was well fragmented but but could use more treatment at 3:00 p.m. shocks it appeared that it was well fragmented. At this point the lower stone was targeted via the imaging system and received shock waves at level 7 with periodic reimaging and Re localization to ensure maximal energy delivery to the stone. At 2000 shockwave the shockwave head was rotated out and both stones appear well fragmented. At this point the patient was awakened having tolerated the procedure well to be transferred to the postanesthesia care unit for recovery. There were no complications. The patient will strain his urine and save any fragments to bring to follow-up. Complications: none Post-operative Condition: stable Disposition: PACU Plan for aftercare: Patient to follow with my office in approximately 10 days with a KUB. Patient will strain his urine and save any fragments and bring this to follow-up.
[2023-10-25 08:48] VITALS: BP 144/84; PULSE 85; RESP 15; O2SAT 93
[2023-10-25 08:53] VITALS: BP 150/94; PULSE 87; RESP 21; O2SAT 97
[2023-10-25 09:04] VITALS: BP 142/88; PULSE 83; RESP 16; TEMP 36.4; O2SAT 98
[2023-10-25] MEDS: ACETAMINOPHEN 325 MG TABLET 650 MG PO (09:20)
[2023-10-25] MEDS: OXYBUTYNIN 5 MG TABLET PO (09:20)
[2023-10-25] MEDS: PHENAZOPYRIDINE 100 MG TABLET 200 MG PO (09:21)
[2023-10-25 09:24] VITALS: BP 138/99; PULSE 79; RESP 15; O2SAT 97
[2023-10-25] MEDS: OXYCODONE IR 5 MG TABLET PO (09:47)
== END 2023-10-25 10:10 | disposition home or self-care (01) ==
PROVIDERS: Referring Provider Urology; Visit Provider Urology
PROC: (CPT 50590; principal; 2023-10-25 07:45)
DX: N20.0 Calculus of kidney (principal)
CPT/HCPCS: 50590; 52332; 82962; J0690; J2250; J2405; J2704; J3010

== ENCOUNTER → 2023-11-03 10:15 | Outpatient (CLI) | payer OTHER, SELFPAY ==
[2022-05-03 14:57] VITALS: BMI 34.8
--- NOTE | 2023-11-03 10:19 | DI.RAD.S_ITS ---
PROCEDURE: XR KUB one view INDICATIONS: kidney stones TECHNIQUE: One view of the abdomen acquired. COMPARISON: [facility], CR, XR KUB, 10/20/2023, 8:21. FINDINGS: New left double-J ureteral stent is noted. Several calcifications projected over the inferior pole of the left kidney more conspicuous than on the prior exam measuring up to approximately 6 mm diameter commonly nonobstructing calculi. At least 2 small round calcifications in the left low pelvis commonly phleboliths measuring 3 mm unchanged. Mild degenerative changes of the lower thoracic, lower lumbar spine and hips unchanged. Bowel: Bowel gas pattern is normal. IMPRESSION: New left double-J ureteral stent. Several calcifications projected over the inferior pole of the left kidney more conspicuous than on the prior exam measuring up to approximately 6 mm diameter commonly nonobstructing calculi. At least 2 small round calcifications in the left low pelvis commonly phleboliths measuring 3 mm unchanged. Dictated by: Dave Zaragoza M.D. on 11/03/2023 at 10:41 Approved by: Dave Zaragoza M.D. on 11/03/2023 at 11:01
== END ==
PROVIDERS: Referring Provider Urology; Visit Provider Urology
DX: N20.0 Calculus of kidney (principal); Z96.0 Presence of urogenital implants
CPT/HCPCS: 74018

== ENCOUNTER → 2023-11-04 13:55 | Outpatient (CLI) | payer OTHER, SELFPAY ==
[2022-05-03 14:57] VITALS: BMI 34.8
== END ==
PROVIDERS: Visit Provider Urology
DX: N20.0 Calculus of kidney (principal); R31.0 Gross hematuria
CPT/HCPCS: 87086

== ENCOUNTER → 2023-11-17 08:38 | Outpatient (CLI) | payer OTHER, SELFPAY ==
[2022-05-03 14:57] VITALS: BMI 34.8
--- NOTE | 2023-11-17 08:39 | DI.RAD.S_ITS ---
PROCEDURE: XR KUB INDICATIONS: Follow-up left kidney stones TECHNIQUE: One view of the abdomen acquired. COMPARISON: [facility], CR, XR KUB, 10/20/2023, 8:21. [facility], CR, XR KUB, 11/03/2023, 10:33. FINDINGS: Surgical changes and devices: Left-sided double-J ureteral stent appears appropriately positioned. Bowel: Bowel gas pattern is normal. Soft tissues: Previously described calcifications over the inferior pole of the left kidney are better seen on prior exam secondary to bowel gas in this region. Scattered phleboliths in the pelvis, as before. Visualized solid organ contours appear normal in size. Bones: No suspicious bony lesions. Mild degenerative changes of the spine and bilateral hips. IMPRESSION: 1. Left-sided double-J ureteral stent appears appropriately positioned. 2. Previously described calcifications in the inferior pole of the left kidney are better seen on prior exam secondary to bowel gas in this region. Dictated by: Aida Alegria M.D. on 11/17/2023 at 15:14 Approved by: Aida Alegria M.D. on 11/17/2023 at 15:16
== END ==
PROVIDERS: Referring Provider Urology; Visit Provider Urology
DX: N20.0 Calculus of kidney (principal); Z96.0 Presence of urogenital implants
CPT/HCPCS: 52310; 74018

== ENCOUNTER → 2023-12-30 14:57 | Outpatient (CLI) | payer OTHER, SELFPAY ==
[2022-05-03 14:57] VITALS: BMI 34.8
[2023-12-30 16:00] LABS: BUN Creatinine Ratio 14.5 (6-22); Blood Urea Nitrogen 12 mg/dL (9-20); Calcium 9.6 mg/dL (8.4-10.2); Carbon Dioxide 22 mmol/L (22-32); Chloride 105 mmol/L (98-107); Estimated Glomerular Filt Rate > 60 mL/min (>60); Glucose 112 mg/dL (80-110); HEMOLYSIS < 15 (0-50); Phosphorous 3.1 mg/dL (2.3-3.7); Potassium 4.2 mmol/L (3.4-5.1); Sodium 136 mmol/L (137-145); Uric Acid 4.9 mg/dL (3.5-8.5)
[2024-01-06 19:38] LABS: Calcium 9.4 mg/dL (8.6-10.2); Parathyroid Hormone, Intact 47 pg/mL (15-65)
== END ==
PROVIDERS: Referring Provider Urology; Visit Provider Urology
DX: N20.0 Calculus of kidney (principal); R39.9 Unspecified symptoms and signs involving the genitourinary system; Z87.442 Personal history of urinary calculi; Z96.0 Presence of urogenital implants; Z84.1 Family history of disorders of kidney and ureter
CPT/HCPCS: 36415; 80048; 81002; 82310; 83970; 84100; 84550